=== PATIENT | female | born 1995 | race Caucasian/White ===

== ENCOUNTER 2018-08-22 05:15 | Inpatient (IN) | payer MEDICAID ==
[2018-08-22] MEDS ORDERED: Sodium Chloride 0.9% 10 ML Syringe FLUSH PRN (05:21)
[2018-08-22] MEDS ORDERED: Sodium Chloride 0.9% 10 ML SDV IV PRN (05:21)
[2018-08-22] MEDS ORDERED: Sodium Chloride 0.9% 2.5 ML Syringe FLUSH PRN (05:21)
[2018-08-22] MEDS ORDERED: Citric Acid/Sodium Citrate Solution 30 ML Cup PO ONE (05:21)
[2018-08-22] MEDS ORDERED: Oxytocin/0.9 % Sodium Chloride 30 UNIT/500 ML BAG IV SCH (05:30)
[2018-08-22] MEDS: Lactated Ringers 1,000 ML IV SCH ×3 (05:55→07:36)
--- NOTE | 2018-08-22 06:48 | PCM.PREANE ---
Preanesthetic Assessment - Anesthesia/Transfusion/Family Hx Anesthesia History: Prior Anesthesia Without Reaction Family History of Anesthesia Reaction: No Transfusion History: No Prior Transfusion(s) Intubation History: Unknown - Review of Systems General: No Symptoms Pulmonary: No Symptoms Cardiovascular: No Symptoms Gastrointestinal: No Symptoms Neurological: No Symptoms Other: Reports: None - Physical Assessment Height: 4 ft 11.06 in Weight: 86.636 kg ASA Class: 2 Mental Status: Alert & Oriented x3 Airway Class: Mallampati = 2 Dentition: Reports: Normal Dentition Thyro-Mental Finger Breadths: 3 Mouth Opening Finger Breadths: 2 ROM/Head Extension: Full Lungs: Clear to Auscultation, Normal Respiratory Effort Cardiovascular: Regular Rate, Regular Rhythm - Lab Values: Laboratory Last Values WBC 12.01 K/uL (4.0-11.0) H 08/22/18 05:53 RBC 4.17 M/uL (4.30-5.90) L 08/22/18 05:53 Hgb 9.7 g/dL (12.0-16.0) L 08/22/18 05:53 Hct 31.7 % (36.0-46.0) L 08/22/18 05:53 MCV 76.0 fL (80.0-98.0) L 08/22/18 05:53 MCH 23.3 pg (27.0-32.0) L 08/22/18 05:53 MCHC 30.6 g/dL (31.0-37.0) L 08/22/18 05:53 RDW Std Deviation 47.1 fl (28.0-62.0) 08/22/18 05:53 RDW Coeff of Michael 17 % (11.0-15.0) H 08/22/18 05:53 Plt Count 298 K/uL (150-400) 08/22/18 05:53 MPV 10.80 fL (7.40-12.00) 08/22/18 05:53 Nucleated RBC % 0.0 /100WBC 08/22/18 05:53 Nucleated RBCs # 0 K/uL 08/22/18 05:53 - Allergies Allergies/Adverse Reactions: Allergies Allergy/AdvReac Type Severity Reaction Status Date / Time No Known Allergies Allergy Verified 08/16/18 11:01 - Blood Blood Available: No - Anesthesia Plan Pre-Op Medication Ordered: None - Acknowledgements Anesthesia Type Planned: Spinal (general anesthesia back-up plan) PreAnesthesia Questionnaire - Past Health History Medical/Surgical History: Denies Medical/Surgical History HEENT History: Reports: Other (See Below) Other HEENT History: wears glasses/contacts Cardiovascular History: Reports: None Respiratory History: Reports: None Gastrointestinal History: Reports: Other (See Below) Other Gastrointestinal History: heartburn with Genitourinary History: Reports: None SPIRAL RUNNER History: Reports: Musculoskeletal History: Reports: None Neurological History: Reports: None Psychiatric History: Reports: None Endocrine/Metabolic History: Reports: Obesity/BMI 30+ Hematologic History: Reports: Anemia Immunologic History: Reports: None Oncologic (Cancer) History: Reports: None Dermatologic History: Reports: None - Past Surgical History Head Surgeries/Procedures: Reports: None HEENT Surgical History: Reports: Oral Surgery Other HEENT Surgeries/Procedures: wisdom teeth extraction Cardiovascular Surgical History: Reports: None Respiratory Surgical History: Reports: None GI Surgical History: Reports: None Female Surgical History: Reports: Section (x2) Endocrine Surgical History: Reports: None Neurological Surgical History: Reports: None Musculoskeletal Surgical History: Reports: None Oncologic Surgical History: Reports: None Dermatological Surgical History: Reports: None - SUBSTANCE USE Smoking Status *Q: Never Smoker Recreational Drug Use History: No - HOME MEDS Home Medications: Home Meds Calcium Carbonate [Tums] 1 tab.chew CHEW ASDIRECTED PRN 08/16/18 [History] Doxylamine Succinate [Unisom Sleep Aid] 1 tab PO BEDTIME 08/16/18 [History] PNV95/Ferrous Fumarate/FA [ Vitamin Tablet] 1 tab PO DAILY 08/16/18 [ History] Pyridoxine HCl (Vitamin B6) [Vitamin B-6] 1 tab PO DAILY 08/16/18 [History] - CURRENT (IN HOUSE) MEDS Current Meds: Current Medications Lactated Ringer's (Ringers, Lactated) 1,000 mls @ 500 mls/hr IV BOLUS [facility] Last Admin: 08/22/18 06:38 Dose: 500 mls/hr Oxytocin/Sodium Chloride (Oxytocin 30 Unit/500 Ml-Ns) 30 unit in 500 mls @ 250 mls/hr IV TITRATE [facility] Sodium Chloride (Saline Flush) 10 ml FLUSH ASDIRECTED PRN PRN Reason: Keep Vein Open Sodium Chloride (Saline Flush) 2.5 ml FLUSH ASDIRECTED PRN PRN Reason: Keep Vein Open Sodium Chloride (Normal Saline) 10 ml IV ASDIRECTED PRN PRN Reason: IV Use Discontinued Medications Citric Acid/Sodium Citrate (Bicitra Solution) 30 ml PO ONETIME ONE Stop: 08/22/18 05:22
[2018-08-22] MEDS ORDERED: Ondansetron 4 MG/2 ML SDV ONE (07:29)
[2018-08-22] MEDS ORDERED: Propofol 200 MG/20 ML SDV ONE (07:30)
[2018-08-22] MEDS ORDERED: Sodium Chloride 0.9% 20 ML ONE (07:30)
[2018-08-22] MEDS ORDERED: ceFAZolin 1 GM Vial ONE (07:30)
[2018-08-22] MEDS ORDERED: ePHEDrine 50 MG/ML SDV ONE (07:30)
[2018-08-22] MEDS ORDERED: Oxytocin 10 Units/1 ML SDV ONE (07:50)
[2018-08-22] MEDS ORDERED: Morphine PF 10 MG/10 ML SDV ONE (07:51)
[2018-08-22] MEDS ORDERED: fentaNYL 100 MCG/2 ML SDV ONE (08:40)
[2018-08-22] MEDS ORDERED: Octyl 2-Cyanoacrylate 1 Tube ONE (09:14)
[2018-08-22] MEDS ORDERED: diphenhydrAMINE 50 MG/ML SDV IVPUSH PRN ×2 (09:34→09:56)
[2018-08-22] MEDS ORDERED: Acetaminophen/oxyCODONE 325-5 MG Tab PO PRN ×2 (09:34→09:56)
[2018-08-22] MEDS ORDERED: Lanolin 100% Cream 7 GM Tube TOP PRN (09:34)
[2018-08-22] MEDS ORDERED: Ondansetron 4 MG/2 ML SDV IVPUSH PRN ×2 (09:34→09:56)
[2018-08-22] MEDS ORDERED: Bisacodyl 10 MG Supp RECTAL PRN (09:34)
--- NOTE | 2018-08-22 09:41 | PCM.OPNOTE ---
- General Post-Op/Procedure Note Date of Surgery/Procedure: 08/22/18 Operative Procedure(s): Tertiary lower transverse Findings: Live female delivered at 832am , 9/9 weight 3060g Pre Op Diagnosis: 23 yo @ 39w2d for tertiary Post-Op Diagnosis: same Anesthesia Technique: Spinal Primary Surgeon: Sandeep Abarca Anesthesia Provider: Elidia Browning [employer] Electrician: Katharine Fluid Replacement, Intraop: 3,500 Output, Urine Amount: 145 EBL in mLs: 500 Complications: None Condition: Good
[2018-08-22] MEDS ORDERED: Lactated Ringers 1,000 ML IV SCH (09:45)
[2018-08-22] MEDS ORDERED: Ketorolac 30 MG/ML SDV ONE (09:52)
[2018-08-22] MEDS: Ketorolac 30 MG/ML SDV IVPUSH SCH ×3 (09:55→22:04)
[2018-08-22] MEDS ORDERED: Nalbuphine 10 MG/1 ML Vial IVPUSH PRN (09:56)
[2018-08-22] MEDS ORDERED: fentaNYL 100 MCG/2 ML SDV IVPUSH PRN (09:56)
[2018-08-22] MEDS ORDERED: Naloxone 0.4 MG/ML Syringe IVPUSH PRN (09:56)
--- NOTE | 2018-08-22 10:06 | PCM.POSTAN ---
POST ANESTHESIA ASSESSMENT - MENTAL STATUS Mental Status: Alert - VITAL SIGNS Pulse Rate: 70 SaO2: 99 Resp Rate: 20 Blood Pressure: 126/80 Temperature: 36.7 C - RESPIRATORY Respiratory Status: Respiratory Rate WNL - CARDIOVASCULAR CV Status: Pulse Rate WNL - GASTROINTESTINAL GI Status: No Symptoms - PAIN Pain Score: 1 (Some cramping) - POST OP HYDRATION Hydration Status: Adequate & Stable (Doing well. Ready for transfer floor. No problems noted.)
--- NOTE | 2018-08-22 11:48 | OR ---
SURGEON: ELISHA CARDENAS DATE OF PROCEDURE: 08/22/2018 PREOPERATIVE DIAGNOSIS: A 23-year-old, G4, P1-1-1-2 at 39 weeks 2 days for tertiary . POSTOPERATIVE DIAGNOSIS: A 23-year-old, G4, P1-1-1-2 at 39 weeks 2 days for tertiary . PROCEDURE: Tertiary lower segment transverse section. ANESTHESIA: Spinal. ESTIMATED BLOOD LOSS: 500. IV FLUID: 3500. URINE OUTPUT: 145. NOTES AND FINDING: A live female delivered at 8:32 a.m. score was 9 and 9. Weight was 3060 g. BRIEF HISTORY: This 23-year-old low-risk patient had a history of previous x2. Desired a repeat . She was explained the risks, benefits, and alternatives, and she decided to proceed. PROCEDURE IN DETAIL: The patient was taken to the operating room where spinal anesthesia was performed without difficulty. She was prepared and draped in the dorsal supine position with a leftward tilt. A Pfannenstiel skin incision was made and was carried down to the fascia with the Bovie. The fascia was incised and extended upwards and laterally. The fascia was grasped with a Dominic clamp and dissected off the rectus muscle. There was some muscle diastasis noted with some pre peritoneal fat noted noted after the entry, so careful dissection was made to ensure there was no adhered bowel. Then, the fascia was also below from the rectus muscle. The abdomen was entered in without any difficulty. It was extended upwards and laterally. The Juan Jose retractor was placed in without any difficulty. The lower uterine segment was identified. The peritoneum was with the aid of the Metzenbaum. Then, the lower uterine incision was made, then it was extended upwards and laterally. The fetus was then elevated to the level of the incision. The head was delivered with fundal pressure followed by the anterior and posterior shoulder. Delayed cord clamping was observed. The cord was clamped and cut. The was handed over to the awaiting nursery nurse team. The placenta was then delivered via gentle traction and uterine massage. Then, the uterine incision was cleaned with moist laparotomy sponges. The incision was closed in 2 layers, first layer with 0 Vicryl, second layer with 0 Monocryl. The gutters were cleaned. Then, the Juan Jose was removed. The uterus was also inspected and noted to be hemostatic. Then, the rectus muscle was approximated with peritoneum without any difficulty. Then, the fascia was closed with 0 Vicryl. The skin was closed with 3-0 Monocryl on a Kraig needle. All instrument and pad count were correct x2. AMARILIS / JOSE MIGUEL /[id number] DANIELITO
[2018-08-22] MEDS: Docusate Sodium 100 MG Cap PO SCH (22:05)
--- NOTE | 2018-08-22 23:59 | PCM48HPAN ---
Post Anesthesia Note - EVALUATION WITHIN 48HRS OF ANESTHETIC Vital Signs in Normal Range: Yes Patient Participated in Evaluation: Yes Respiratory Function Stable: Yes Airway Patent: Yes Cardiovascular Function Stable: Yes Hydration Status Stable: Yes Pain Control Satisfactory: Yes Nausea and Vomiting Control Satisfactory: Yes Mental Status Recovered: Yes Pulse Rate: 67 SaO2: 96 Resp Rate: 18 Temperature: 97.2 F Blood Pressure: 124/68
[2018-08-23] MEDS: Ketorolac 30 MG/ML SDV IVPUSH SCH ×2 (04:10→09:22)
--- NOTE | 2018-08-23 09:09 | PCM.PNPP ---
- General Info Date of Service: 08/23/18 Subjective Update: 23yo s/p X3 , Ambulating , pain control good , yet to void Functional Status: Reports: Pain Controlled, Tolerating Diet, Ambulating - Review of Systems General: Reports: No Symptoms HEENT: Reports: No Symptoms Pulmonary: Reports: No Symptoms Cardiovascular: Reports: No Symptoms Gastrointestinal: Reports: No Symptoms Genitourinary: Reports: No Symptoms Musculoskeletal: Reports: No Symptoms Skin: Reports: No Symptoms Neurological: Reports: No Symptoms Psychiatric: Reports: No Symptoms - Patient Data Vital Signs - Most Recent: Last Vital Signs Temp 36.6 C 08/23/18 04:19 Pulse 77 08/23/18 08:00 Resp 14 08/23/18 08:00 BP 119/74 08/23/18 08:00 Pulse Ox 99 08/23/18 08:00 Weight - Most Recent: 86.636 kg I&O - Last 24 Hours: Intake & Output 08/22/18 08/23/18 08/23/18 22:59 06:59 14:59 Output Total 420 625 Balance -420 -625 Lab Results - Last 24 Hours: Laboratory Results - last 24 hr 08/23/18 Range/Units 05:00 Hgb 9.4 L (12.0-16.0) g/dL Hct 32.0 L (36.0-46.0) % Med Orders - Current: Current Medications Bisacodyl (Dulcolax) 10 mg RECTAL ONETIME PRN PRN Reason: Constipation Diphenhydramine HCl (Benadryl) 25 mg IVPUSH Q6H PRN PRN Reason: Itching or Nausea Last Admin: 08/23/18 04:52 Dose: 25 mg Diphenhydramine HCl (Benadryl) 25 mg IVPUSH Q4H PRN PRN Reason: Itching Stop: 08/23/18 09:56 Docusate Sodium (Colace) 100 mg PO BID [facility] Last Admin: 08/22/18 22:05 Dose: 100 mg Emollient Ointment (Lansinoh Hpa) 0 gm TOP ASDIRECTED PRN PRN Reason: Sore Nipples Fentanyl (Sublimaze) 50 mcg IVPUSH Q1H PRN PRN Reason: Pain (severe 7-10) Lactated Ringer's (Ringers, Lactated) 1,000 mls @ 500 mls/hr IV BOLUS [facility] Last Admin: 08/22/18 07:36 Dose: 500 mls/hr Oxytocin/Sodium Chloride (Oxytocin 30 Unit/500 Ml-Ns) 30 unit in 500 mls @ 250 mls/hr IV TITRATE [facility] Lactated Ringer's (Ringers, Lactated) 1,000 mls @ 125 mls/hr IV ASDIRECTED [facility] Ibuprofen (Motrin) 800 mg PO Q8H PRN PRN Reason: mild pain or fever Ketorolac Tromethamine (Toradol) 30 mg IVPUSH Q6H [facility] Stop: 08/23/18 09:46 Last Admin: 08/23/18 04:10 Dose: 30 mg Nalbuphine HCl (Nubain) 5 mg IVPUSH ASDIRECTED PRN PRN Reason: Itching Last Admin: 08/22/18 11:04 Dose: 5 mg Naloxone HCl (Narcan) 0.1 mg IVPUSH ONETIME PRN PRN Reason: Respiratory Depression Stop: 08/23/18 09:56 Ondansetron HCl (Zofran) 4 mg IVPUSH Q4H PRN PRN Reason: Nausea/Vomiting Last Admin: 08/22/18 16:40 Dose: 4 mg Ondansetron HCl (Zofran) 4 mg IVPUSH Q6H PRN PRN Reason: Nausea Oxycodone/Acetaminophen (Percocet 325-5 Mg) 1 tab PO Q4H PRN PRN Reason: Pain (moderate 4-6) Oxycodone/Acetaminophen (Percocet 325-5 Mg) 2 tab PO Q4H PRN PRN Reason: Pain (moderate 4-6) Oxycodone/Acetaminophen (Percocet 325-5 Mg) 2 tab PO Q6H PRN PRN Reason: Pain (moderate 4-6) Sodium Chloride (Saline Flush) 10 ml FLUSH ASDIRECTED PRN PRN Reason: Keep Vein Open Sodium Chloride (Saline Flush) 2.5 ml FLUSH ASDIRECTED PRN PRN Reason: Keep Vein Open Sodium Chloride (Normal Saline) 10 ml IV ASDIRECTED PRN PRN Reason: IV Use Discontinued Medications Cefazolin Sodium (Ancef) Confirm Administered Dose 2 gm .ROUTE .STK-MED ONE Stop: 08/22/18 07:31 Citric Acid/Sodium Citrate (Bicitra Solution) 30 ml PO ONETIME ONE Stop: 08/22/18 05:22 Last Admin: 08/22/18 10:20 Dose: Not Given Ephedrine Sulfate (Ephedrine Sulfate) Confirm Administered Dose 50 mg .ROUTE .STK-MED ONE Stop: 08/22/18 07:31 Fentanyl (Sublimaze) Confirm Administered Dose 100 mcg .ROUTE .STK-MED ONE Stop: 08/22/18 08:41 Sodium Chloride (Normal Saline) Confirm Administered Dose 20 mls @ as directed .ROUTE .STK-MED ONE Stop: 08/22/18 07:31 Acetaminophen (Ofirmev) Confirm Administered Dose 100 mls @ as directed IV .STK- MED ONE Stop: 08/22/18 08:55 Last Admin: 08/22/18 10:20 Dose: Not Given Ketorolac Tromethamine (Toradol) Confirm Administered Dose 30 mg .ROUTE .STK- MED ONE Stop: 08/22/18 09:53 Last Admin: 08/22/18 10:20 Dose: Not Given Morphine Sulfate (Duramorph Pf) Confirm Administered Dose 10 mg .ROUTE .STK-MED ONE Stop: 08/22/18 07:52 Octyl Cyanoacrylate (Dermabond Advance) Confirm Administered Dose 1 applic .ROUTE .STK-MED ONE Stop: 08/22/18 09:15 Last Admin: 08/22/18 10:20 Dose: Not Given Ondansetron HCl (Zofran) Confirm Administered Dose 4 mg .ROUTE .STK-MED ONE Stop: 08/22/18 07:30 Oxytocin (Pitocin) Confirm Administered Dose 30 unit .ROUTE .STK-MED ONE Stop: 08/22/18 07:51 Propofol (Diprivan 20 Ml) Confirm Administered Dose 200 mg .ROUTE .STK-MED ONE Stop: 08/22/18 07:31 - Infant Interaction Support Person: Significant Other - Recovery Exam Fundal Tone: Firm Fundal Level: At Umbilicus Fundal Placement: Midline Lochia Amount: Scant Lochia Color: Rubra/Red Perineum Description: Intact, Minimal Bruising/Swelling Episiotomy/Laceration: None Bladder Status: Voiding Urinary Elimination: Voided - Exam General: Alert HEENT: Pupils Equal Neck: Supple Lungs: Clear to Auscultation, Normal Respiratory Effort Cardiovascular: Regular Rate, Regular Rhythm GI/Abdominal Exam: Normal Bowel Sounds Extremities: Normal Inspection Wound/Incisions: Dressing Dry and Intact Neurological: No New Focal Deficit - Problem List & Annotations (1) delivery delivered SNOMED Code(s): 231066428 Code(s): O82 - ENCOUNTER FOR DELIVERY WITHOUT INDICATION Status: Acute Current Visit: Yes - Problem List Review Problem List Initiated/Reviewed/Updated: Yes - My Orders Last 24 Hours: My Active Orders 08/22/18 09:34 Patient Status [ADT] Routine Ambulate [RC] PER UNIT ROUTINE Communication Order [RC] PER UNIT ROUTINE Communication Order [RC] PER UNIT ROUTINE Communication Order [RC] Per Unit Routine May Shower [RC] ASDIRECTED Notify Provider Intake and Out [RC] ASDIRECTED Notify Provider Vital Signs [RC] ASDIRECTED RT Incentive Spirometry [RC] Q2HWA Vital Signs [RC] PER UNIT ROUTINE Acetaminophen/oxyCODONE [Percocet 325-5 MG] 1 tab PO Q4H PRN Acetaminophen/oxyCODONE [Percocet 325-5 MG] 2 tab PO Q4H PRN Bisacodyl [Dulcolax] 10 mg RECTAL ONETIME PRN Ibuprofen [Motrin] 800 mg PO Q8H PRN Lanolin [Lansinoh HPA] See Dose Instructions TOP ASDIRECTED PRN Ondansetron [Zofran] 4 mg IVPUSH Q4H PRN diphenhydrAMINE [Benadryl] 25 mg IVPUSH Q6H PRN Assess Lochia [WOMSER] Per Unit Routine Assess Uterine Involution [WOMSER] Per Unit Routine Breast Pump [WOMSER] Per Unit Routine Peripheral IV Discontinue [OM.PC] Routine Sequential Compression Device [OM.PC] Per Unit Routine Resuscitation Status Routine 08/22/18 09:35 Antiembolic Devices [RC] PER UNIT ROUTINE 08/22/18 09:45 Ketorolac [Toradol] 30 mg IVPUSH Q6H Lactated Ringers [Ringers, Lactated] 1,000 ml IV ASDIRECTED 08/22/18 21:00 Docusate Sodium [Colace] 100 mg PO BID 08/22/18 Dinner Regular Diet [DIET] - Assessment Assessment:: 23 yo P3 s/p , ambulating , tolerating regular diet , yet to void - Plan Plan:: ROutine Monitor voiding Pain control as needed Incentive spirometry
[2018-08-23] MEDS: Docusate Sodium 100 MG Cap PO SCH ×2 (09:18→20:50)
[2018-08-23] MEDS: Acetaminophen/oxyCODONE 325-5 MG Tab PO PRN ×2 (12:35→20:55)
[2018-08-23] MEDS: Ibuprofen 800 MG Tab PO PRN (18:07)
[2018-08-24] MEDS: Acetaminophen/oxyCODONE 325-5 MG Tab PO PRN ×2 (01:47→05:40)
[2018-08-24] MEDS: Ibuprofen 800 MG Tab PO PRN (05:41)
--- NOTE | 2018-08-24 08:50 | PCM.PNPP ---
- General Info Date of Service: 08/24/18 Subjective Update: 23yo s/p X3 , Ambulating , pain control fair , voiding Functional Status: Reports: Pain Controlled, Tolerating Diet, Ambulating, Urinating - Review of Systems General: Reports: No Symptoms HEENT: Reports: No Symptoms Pulmonary: Reports: No Symptoms Cardiovascular: Reports: No Symptoms Gastrointestinal: Reports: No Symptoms Genitourinary: Reports: No Symptoms Musculoskeletal: Reports: No Symptoms Skin: Reports: No Symptoms Neurological: Reports: No Symptoms Psychiatric: Reports: No Symptoms - General Info Date of Service: 08/24/18 - Patient Data Vital Signs - Most Recent: Last Vital Signs Temp 36.4 C 08/24/18 04:22 Pulse 78 08/24/18 04:22 Resp 18 08/24/18 04:22 BP 119/80 08/24/18 04:22 Pulse Ox 97 08/24/18 04:22 Weight - Most Recent: 86.636 kg Med Orders - Current: Current Medications Bisacodyl (Dulcolax) 10 mg RECTAL ONETIME PRN PRN Reason: Constipation Diphenhydramine HCl (Benadryl) 25 mg IVPUSH Q6H PRN PRN Reason: Itching or Nausea Last Admin: 08/23/18 04:52 Dose: 25 mg Docusate Sodium (Colace) 100 mg PO BID [facility] Last Admin: 08/23/18 20:50 Dose: 100 mg Emollient Ointment (Lansinoh Hpa) 0 gm TOP ASDIRECTED PRN PRN Reason: Sore Nipples Fentanyl (Sublimaze) 50 mcg IVPUSH Q1H PRN PRN Reason: Pain (severe 7-10) Lactated Ringer's (Ringers, Lactated) 1,000 mls @ 500 mls/hr IV BOLUS [facility] Last Admin: 08/22/18 07:36 Dose: 500 mls/hr Oxytocin/Sodium Chloride (Oxytocin 30 Unit/500 Ml-Ns) 30 unit in 500 mls @ 250 mls/hr IV TITRATE [facility] Lactated Ringer's (Ringers, Lactated) 1,000 mls @ 125 mls/hr IV ASDIRECTED [facility] Ibuprofen (Motrin) 800 mg PO Q8H PRN PRN Reason: mild pain or fever Last Admin: 08/24/18 05:41 Dose: 800 mg Nalbuphine HCl (Nubain) 5 mg IVPUSH ASDIRECTED PRN PRN Reason: Itching Last Admin: 08/22/18 11:04 Dose: 5 mg Ondansetron HCl (Zofran) 4 mg IVPUSH Q4H PRN PRN Reason: Nausea/Vomiting Last Admin: 08/22/18 16:40 Dose: 4 mg Ondansetron HCl (Zofran) 4 mg IVPUSH Q6H PRN PRN Reason: Nausea Oxycodone/Acetaminophen (Percocet 325-5 Mg) 1 tab PO Q4H PRN PRN Reason: Pain (moderate 4-6) Last Admin: 08/24/18 05:40 Dose: 1 tab Oxycodone/Acetaminophen (Percocet 325-5 Mg) 2 tab PO Q4H PRN PRN Reason: Pain (moderate 4-6) Oxycodone/Acetaminophen (Percocet 325-5 Mg) 2 tab PO Q6H PRN PRN Reason: Pain (moderate 4-6) Sodium Chloride (Saline Flush) 10 ml FLUSH ASDIRECTED PRN PRN Reason: Keep Vein Open Sodium Chloride (Saline Flush) 2.5 ml FLUSH ASDIRECTED PRN PRN Reason: Keep Vein Open Sodium Chloride (Normal Saline) 10 ml IV ASDIRECTED PRN PRN Reason: IV Use Discontinued Medications Cefazolin Sodium (Ancef) Confirm Administered Dose 2 gm .ROUTE .STK-MED ONE Stop: 08/22/18 07:31 Citric Acid/Sodium Citrate (Bicitra Solution) 30 ml PO ONETIME ONE Stop: 08/22/18 05:22 Last Admin: 08/22/18 10:20 Dose: Not Given Diphenhydramine HCl (Benadryl) 25 mg IVPUSH Q4H PRN PRN Reason: Itching Stop: 08/23/18 09:56 Ephedrine Sulfate (Ephedrine Sulfate) Confirm Administered Dose 50 mg .ROUTE .STK-MED ONE Stop: 08/22/18 07:31 Fentanyl (Sublimaze) Confirm Administered Dose 100 mcg .ROUTE .STK-MED ONE Stop: 08/22/18 08:41 Sodium Chloride (Normal Saline) Confirm Administered Dose 20 mls @ as directed .ROUTE .STK-MED ONE Stop: 08/22/18 07:31 Acetaminophen (Ofirmev) Confirm Administered Dose 100 mls @ as directed IV .STK- MED ONE Stop: 08/22/18 08:55 Last Admin: 08/22/18 10:20 Dose: Not Given Ketorolac Tromethamine (Toradol) 30 mg IVPUSH Q6H [facility] Stop: 08/23/18 09:46 Last Admin: 08/23/18 09:22 Dose: 30 mg Ketorolac Tromethamine (Toradol) Confirm Administered Dose 30 mg .ROUTE .STK- MED ONE Stop: 08/22/18 09:53 Last Admin: 08/22/18 10:20 Dose: Not Given Morphine Sulfate (Duramorph Pf) Confirm Administered Dose 10 mg .ROUTE .STK-MED ONE Stop: 08/22/18 07:52 Naloxone HCl (Narcan) 0.1 mg IVPUSH ONETIME PRN PRN Reason: Respiratory Depression Stop: 08/23/18 09:56 Octyl Cyanoacrylate (Dermabond Advance) Confirm Administered Dose 1 applic .ROUTE .STK-MED ONE Stop: 08/22/18 09:15 Last Admin: 08/22/18 10:20 Dose: Not Given Ondansetron HCl (Zofran) Confirm Administered Dose 4 mg .ROUTE .STK-MED ONE Stop: 08/22/18 07:30 Oxytocin (Pitocin) Confirm Administered Dose 30 unit .ROUTE .STK-MED ONE Stop: 08/22/18 07:51 Propofol (Diprivan 20 Ml) Confirm Administered Dose 200 mg .ROUTE .STK-MED ONE Stop: 08/22/18 07:31 - Interaction Support Person: Significant Other - Recovery Exam Fundal Tone: Firm Fundal Level: 1 Fingerbreadths Below Umbilicus Fundal Placement: Midline Lochia Amount: Scant Lochia Color: Rubra/Red Perineum Description: Intact, Minimal Bruising/Swelling Episiotomy/Laceration: None Bladder Status: Voiding Urinary Elimination: Voided - Exam General: Alert, Oriented HEENT: Pupils Equal Neck: Supple Lungs: Clear to Auscultation Cardiovascular: Regular Rate, Regular Rhythm GI/Abdominal Exam: Normal Bowel Sounds Extremities: Normal Inspection Wound/Incisions: Dressing Dry and Intact Neurological: No New Focal Deficit - Problem List & Annotations (1) delivery delivered SNOMED Code(s): 542669667 Code(s): O82 - ENCOUNTER FOR DELIVERY WITHOUT INDICATION Status: Acute Current Visit: Yes - Problem List Review Problem List Initiated/Reviewed/Updated: Yes - Assessment Assessment:: 23 yo P3 s/p , ambulating , tolerating regular diet ,voiding, POD2 - Plan Plan:: Discharge home
[2018-08-24] MEDS: Docusate Sodium 100 MG Cap PO SCH (09:19)
[2018-08-24 09:48] VITALS: BP 134/82
== END 2018-08-24 12:20 | disposition home or self-care (01) | DRG 788 ==
LOC: UNDOADMIN 05:15 → MW.OB 05:15
PROVIDERS: ADMIT Obstetrics & Gynecology; ATTEND Obstetrics & Gynecology
PROC: 10D00Z1 Extraction of Products of Conception, Low, Open Approach (ICD-10-PCS; principal; 2018-08-22)
DX: O34.211 Maternal care for low transverse scar from previous cesarean delivery (principal); O99.214 Obesity complicating childbirth; E66.9 Obesity, unspecified; D64.9 Anemia, unspecified; O99.02 Anemia complicating childbirth; Z3A.39 39 weeks gestation of pregnancy; Z37.0 Single live birth
CPT/HCPCS: 36415; 59025; 85014; 85018; 85027; 86850; 86900; 86901; A9270-GY; J0690; J1200; J1885; J2270; J2300; J2405; J2590; J2704; J3010; J7120

== ENCOUNTER 2020-02-23 05:20 | Inpatient (IN) | payer MEDICAID ==
[2020-02-23] MEDS ORDERED: Tranexamic Acid 1,000 MG in Sodium Chloride 0.9% 100 ML IV PRN ×2 (05:25→09:29)
[2020-02-23] MEDS ORDERED: Nalbuphine 10 MG/1 ML Vial IVPUSH PRN ×2 (05:25→09:05)
[2020-02-23] MEDS ORDERED: Carboprost Tromethamine 250 MCG/1 ML Amp IM PRN (05:25)
[2020-02-23] MEDS ORDERED: Citric Acid/Sodium Citrate Solution 30 ML Cup PO ONE (05:25)
[2020-02-23] MEDS ORDERED: Misoprostol 200 MCG Tab PO PRN (05:25)
[2020-02-23] MEDS ORDERED: ceFAZolin 2 GM in Premix Bag 1 BAG IV ONE (05:25)
[2020-02-23] MEDS ORDERED: Butorphanol 1 MG/ML SDV IVPUSH PRN (05:25)
[2020-02-23] MEDS ORDERED: Sodium Chloride 0.9% 10 ML SDV IV PRN (05:25)
[2020-02-23] MEDS ORDERED: Sodium Chloride 0.9% 2.5 ML Syringe FLUSH PRN (05:25)
[2020-02-23] MEDS ORDERED: Methylergonovine 0.2 MG/1 ML Amp IM PRN ×2 (05:25→09:29)
[2020-02-23] MEDS ORDERED: Water For Irrigation,Sterile 1,000 ML Container IRR PRN (05:25)
[2020-02-23] MEDS ORDERED: Sodium Chloride 0.9% 10 ML Syringe FLUSH PRN (05:25)
[2020-02-23] MEDS ORDERED: Lidocaine 1% 50 ML MDV INJECT PRN (05:25)
[2020-02-23] MEDS ORDERED: Lactated Ringers 1,000 ML IV SCH (05:30)
[2020-02-23] MEDS ORDERED: Oxytocin/0.9 % Sodium Chloride 30 UNIT/500 ML BAG IV SCH ×2 (05:30)
[2020-02-23] MEDS: Lactated Ringers 1,000 ML IV SCH ×6 (05:55→17:23)
--- NOTE | 2020-02-23 07:01 | PCM.PREANE ---
Preanesthetic Assessment - Anesthesia/Transfusion/Family Hx Anesthesia History: Prior Anesthesia Without Reaction Family History of Anesthesia Reaction: No Transfusion History: No Prior Transfusion(s) Type of Transfusion Reactions: Reports: Unknown Intubation History: Unknown - Review of Systems General: No Symptoms Pulmonary: No Symptoms Cardiovascular: No Symptoms Gastrointestinal: No Symptoms Neurological: No Symptoms Other: Reports: None - Physical Assessment Height: 5 ft Weight: 96.615 kg ASA Class: 2 Mental Status: Alert & Oriented x3 Airway Class: Mallampati = 2 Dentition: Reports: Normal Dentition Thyro-Mental Finger Breadths: 3 Mouth Opening Finger Breadths: 3 ROM/Head Extension: Full Lungs: Clear to Auscultation, Normal Respiratory Effort Cardiovascular: Regular Rate, Regular Rhythm - Lab Values: Laboratory Last Values WBC 12.27 K/uL (4.0-11.0) H 02/23/20 05:50 RBC 4.15 M/uL (4.30-5.90) L 02/23/20 05:50 Hgb 9.8 g/dL (12.0-16.0) L 02/23/20 05:50 Hct 32.3 % (36.0-46.0) L 02/23/20 05:50 MCV 77.8 fL (80.0-98.0) L 02/23/20 05:50 MCH 23.6 pg (27.0-32.0) L 02/23/20 05:50 MCHC 30.3 g/dL (31.0-37.0) L 02/23/20 05:50 RDW Std Deviation 47.6 fl (28.0-62.0) 02/23/20 05:50 RDW Coeff of Michael 17 % (11.0-15.0) H 02/23/20 05:50 Plt Count 279 K/uL (150-400) 02/23/20 05:50 MPV 11.20 fL (7.40-12.00) 02/23/20 05:50 Nucleated RBC % 0.5 /100WBC 02/23/20 05:50 Nucleated RBCs # 0 K/uL 02/23/20 05:50 - Allergies Allergies/Adverse Reactions: Allergies Allergy/AdvReac Type Severity Reaction Status Date / Time No Known Allergies Allergy Verified 02/19/20 08:20 - Blood Blood Available: No - Anesthesia Plan Pre-Op Medication Ordered: None - Acknowledgements Anesthesia Type Planned: Spinal (general anesthesia back-up plan) Pt an Appropriate Candidate for the Planned Anesthesia: Yes Alternatives and Risks of Anesthesia Discussed w Pt/Guardian: Yes Pt/Guardian Understands and Agrees with Anesthesia Plan: Yes PreAnesthesia Questionnaire - Past Health History Medical/Surgical History: Denies Medical/Surgical History HEENT History: Reports: Other (See Below) Other HEENT History: wears glasses/contacts Cardiovascular History: Reports: None Respiratory History: Reports: None Gastrointestinal History: Reports: Other (See Below) Other Gastrointestinal History: heartburn with Genitourinary History: Reports: None EVALUATION SPECIALIST History: Reports: Musculoskeletal History: Reports: None Neurological History: Reports: None Psychiatric History: Reports: None Endocrine/Metabolic History: Reports: Obesity/BMI 30+ Hematologic History: Reports: Anemia Immunologic History: Reports: None Oncologic (Cancer) History: Reports: None Dermatologic History: Reports: None - Infectious Disease History Infectious Disease History: Reports: None - Past Surgical History Head Surgeries/Procedures: Reports: None HEENT Surgical History: Reports: Oral Surgery Other HEENT Surgeries/Procedures: wisdom teeth extraction Cardiovascular Surgical History: Reports: None Respiratory Surgical History: Reports: None GI Surgical History: Reports: None Female Surgical History: Reports: Section (x3) Endocrine Surgical History: Reports: None Neurological Surgical History: Reports: None Musculoskeletal Surgical History: Reports: None Oncologic Surgical History: Reports: None Dermatological Surgical History: Reports: None - SUBSTANCE USE Tobacco Use Status *Q: Never Tobacco User Second Hand Smoke Exposure: No - HOME MEDS Home Medications: Home Meds Pnv No.95/Ferrous Fum/Folic AC [ Vitamin Tablet] 1 tab PO DAILY 08/16/18 [History] Ferrous Sulfate [Iron] 3 tab PO DAILY 02/19/20 [History] - CURRENT (IN HOUSE) MEDS Current Meds: Current Medications Butorphanol Tartrate (Stadol) 1 mg IVPUSH Q1H PRN PRN Reason: Pain Carboprost Tromethamine (Hemabate Ds) 250 mcg IM ASDIRECTED PRN PRN Reason: Post Hemorrhage Oxytocin/Sodium Chloride (Oxytocin 30 Unit/500 Ml-Ns) 30 unit in 500 mls @ 250 mls/hr IV TITRATE [facility] Lactated Ringer's (Ringers, Lactated) 1,000 mls @ 150 mls/hr IV ASDIRECTED [facility] Oxytocin/Sodium Chloride (Oxytocin 30 Unit/500 Ml-Ns) 30 unit in 500 mls @ 999 mls/hr IV TITRATE [facility] Tranexamic Acid 1,000 mg/ (Sodium Chloride) 110 mls @ 660 mls/hr IV ONETIME PRN PRN Reason: Bleeding Lactated Ringer's (Ringers, Lactated) 1,000 mls @ 500 mls/hr IV BOLUS [facility] Last Admin: 02/23/20 06:45 Dose: 999 mls/hr Documented by: Lidocaine HCl (Xylocaine 1%) 50 ml INJECT ONETIME PRN PRN Reason: Laceration repair Methylergonovine Maleate (Methergine) 0.2 mg IM ASDIRECTED PRN PRN Reason: Post Hemorrhage Misoprostol (Cytotec) 200 mcg PO ONETIME PRN PRN Reason: Post Hemorrhage Nalbuphine HCl (Nubain) 10 mg IVPUSH Q1H PRN PRN Reason: Pain (severe 7-10) Sodium Chloride (Saline Flush) 10 ml FLUSH ASDIRECTED PRN PRN Reason: Keep Vein Open Sodium Chloride (Saline Flush) 2.5 ml FLUSH ASDIRECTED PRN PRN Reason: Keep Vein Open Sodium Chloride (Normal Saline) 10 ml IV ASDIRECTED PRN PRN Reason: IV Use Sterile Water (Sterile Water For Irrigation) 1,000 ml IRR ASDIRECTED PRN PRN Reason: delivery Discontinued Medications Citric Acid/Sodium Citrate (Bicitra Solution) 30 ml PO ONETIME ONE Stop: 02/23/20 05:26 Cefazolin Sodium/Dextrose 2 gm (/ Premix) 50 mls @ 100 mls/hr IV ONETIME ONE Stop: 02/23/20 05:54
[2020-02-23] MEDS ORDERED: Morphine PF 10 MG/10 ML SDV ONE (07:10)
[2020-02-23] MEDS ORDERED: Ondansetron 4 MG/2 ML SDV ONE (07:11)
[2020-02-23] MEDS ORDERED: Oxytocin 10 Units/1 ML SDV ONE (07:11)
[2020-02-23] MEDS ORDERED: Phenylephrine 1% 10 MG/ML SDV ONE (07:11)
[2020-02-23] MEDS ORDERED: Midazolam 1 MG/ML 2 ML SDV ONE (08:23)
[2020-02-23] MEDS ORDERED: Propofol 200 MG/20 ML SDV ONE (08:24)
[2020-02-23] MEDS ORDERED: fentaNYL 100 MCG/2 ML SDV ONE (08:36)
[2020-02-23] MEDS ORDERED: diphenhydrAMINE 50 MG/ML SDV IVPUSH PRN ×2 (09:05→09:29)
[2020-02-23] MEDS ORDERED: Naloxone 0.4 MG/ML Syringe IVPUSH PRN (09:05)
[2020-02-23] MEDS ORDERED: Acetaminophen/oxyCODONE 325-5 MG Tab PO PRN ×2 (09:05→09:29)
[2020-02-23] MEDS ORDERED: fentaNYL 100 MCG/2 ML SDV IVPUSH PRN (09:05)
[2020-02-23] MEDS ORDERED: Ondansetron 4 MG/2 ML SDV IVPUSH PRN ×2 (09:05→09:29)
[2020-02-23] MEDS ORDERED: Oxytocin 10 Units/1 ML SDV IM PRN (09:29)
[2020-02-23] MEDS ORDERED: Misoprostol 200 MCG Tab RECTAL PRN (09:29)
[2020-02-23] MEDS ORDERED: Bisacodyl 10 MG Supp RECTAL PRN (09:29)
[2020-02-23] MEDS ORDERED: Lanolin 100% Cream 7 GM Tube TOP PRN (09:29)
[2020-02-23] MEDS ORDERED: Oxytocin/Lactated Ringers 30 UNIT/500 ML BAG IV SCH (09:30)
--- NOTE | 2020-02-23 09:38 | PCM.OPNOTE ---
- General Post-Op/Procedure Note Date of Surgery/Procedure: 02/23/20 Operative Procedure(s): Quaternary Lower segment section Findings: Live Male delivered at 830am , 8/9 weight 3500g Pre Op Diagnosis: 24yo @ 39week for quaternary section Post-Op Diagnosis: same Anesthesia Technique: Spinal Primary Surgeon: Sandeep Abarca Secondary Surgeon: Allegra Sanchez Anesthesia Provider: Robb Ferraro Fluid Replacement, Intraop: 1,700 Output, Urine Amount: 100 EBL in mLs: 600 Complications: None Condition: Good
--- NOTE | 2020-02-23 09:55 | PCM.POSTAN ---
POST ANESTHESIA ASSESSMENT - MENTAL STATUS Mental Status: Alert - RESPIRATORY Respiratory Status: Respiratory Rate WNL - CARDIOVASCULAR CV Status: Pulse Rate WNL - GASTROINTESTINAL GI Status: No Symptoms - POST OP HYDRATION Hydration Status: Adequate & Stable
[2020-02-23] MEDS: Ketorolac 30 MG/ML SDV IVPUSH SCH ×3 (10:54→21:06)
[2020-02-23] MEDS ORDERED: Furosemide 20 MG/2 ML VIAL IVPUSH ONE (16:46)
--- NOTE | 2020-02-23 16:47 | PCM.POSTAN ---
POST ANESTHESIA ASSESSMENT - VITAL SIGNS Vital Signs: Last Vital Signs Temp Pulse 72 02/23/20 15:00 Resp 18 02/23/20 15:00 BP Pulse Ox 97 02/23/20 15:00 - RESPIRATORY Respiratory Status: Respiratory Rate WNL - CARDIOVASCULAR CV Status: Pulse Rate WNL - GASTROINTESTINAL GI Status: No Symptoms - POST OP HYDRATION Hydration Status: Adequate & Stable
[2020-02-23 17:43] LABS: BLOOD UREA NITROGEN,BUN 13 mg/dL (7.0-18.0); CHLORIDE,CL 108 mmol/L (98-107); GLUCOSE RANDOM 74 mg/dL (74-106); POTASSIUM,K 4.5 mmol/L (3.5-5.1); SODIUM,NA 139 mmol/L (136-145)
[2020-02-23] MEDS: Docusate Sodium 100 MG Cap PO SCH (21:05)
[2020-02-24] MEDS: Ketorolac 30 MG/ML SDV IVPUSH SCH ×2 (04:52→10:12)
--- NOTE | 2020-02-24 09:22 | PCM.PNPP ---
- General Info Date of Service: 02/24/20 Admission Dx/Problem (Free Text): Repeat lower transverse section Subjective Update: Resting comfortably in bed this morning. Reports pain well controlled. Armando catheter removed this morning but has not voided independently. Ambulating without difficulty. Tolerating PO diet. and pumping for baby. Denies fever/chills, lightheadedness/dizziness, nausea/vomiting or heavy vaginal bleeding. - General Info Date of Service: 02/24/20 - Patient Data Vital Signs - Most Recent: Last Vital Signs Temp 97.9 F 02/24/20 07:55 Pulse 105 H 02/24/20 09:00 Resp 18 02/24/20 09:00 BP 130/74 02/24/20 07:55 Pulse Ox 95 02/24/20 09:00 Weight - Most Recent: 213 lb I&O - Last 24 Hours: Intake & Output 02/23/20 02/24/20 02/24/20 22:59 06:59 14:59 Intake Total 1685 700 Output Total 200 2200 Balance 1485 -1500 Lab Results - Last 24 Hours: Laboratory Results - last 24 hr 02/23/20 02/24/20 Range/Units 17:05 06:20 Hgb 8.4 L (12.0-16.0) g/dL Hct 28.4 L (36.0-46.0) % Sodium 139 (136-145) mmol/L Potassium 4.5 (3.5-5.1) mmol/L Chloride 108 H (98-107) mmol/L Carbon Dioxide 21.0 (21.0-32.0) mmol/L BUN 13 (7.0-18.0) mg/dL Creatinine 0.8 (0.6-1.0) mg/dL Est Cr Clr Drug Dosing 77.89 mL/min Estimated GFR (MDRD) > 60.0 ml/min Glucose 74 (74-106) mg/dL Calcium 8.5 (8.5-10.1) mg/dL Med Orders - Current: Current Medications Bisacodyl (Dulcolax) 10 mg RECTAL ONETIME PRN PRN Reason: Constipation Butorphanol Tartrate (Stadol) 1 mg IVPUSH Q1H PRN PRN Reason: Pain Carboprost Tromethamine (Hemabate Ds) 250 mcg IM ASDIRECTED PRN PRN Reason: Post Hemorrhage Diphenhydramine HCl (Benadryl) 25 mg IVPUSH Q6H PRN PRN Reason: Itching or Nausea Docusate Sodium (Colace) 100 mg PO BID [facility] Last Admin: 02/23/20 21:05 Dose: 100 mg Documented by: Emollient Ointment (Lansinoh Hpa) 0 gm TOP ASDIRECTED PRN PRN Reason: Sore Nipples Last Admin: 02/23/20 11:21 Dose: 7 gm Documented by: Fentanyl (Sublimaze) 50 mcg IVPUSH Q1H PRN PRN Reason: Pain (severe 7-10) Oxytocin/Sodium Chloride (Oxytocin 30 Unit/500 Ml-Ns) 30 unit in 500 mls @ 250 mls/hr IV TITRATE [facility] Lactated Ringer's (Ringers, Lactated) 1,000 mls @ 150 mls/hr IV ASDIRECTED [facility] Oxytocin/Sodium Chloride (Oxytocin 30 Unit/500 Ml-Ns) 30 unit in 500 mls @ 999 mls/hr IV TITRATE [facility] Tranexamic Acid 1,000 mg/ (Sodium Chloride) 110 mls @ 660 mls/hr IV ONETIME PRN PRN Reason: Bleeding Lactated Ringer's (Ringers, Lactated) 1,000 mls @ 500 mls/hr IV BOLUS [facility] Last Admin: 02/23/20 07:59 Dose: 999 mls/hr Documented by: Lactated Ringer's (Ringers, Lactated) 1,000 mls @ 125 mls/hr IV ASDIRECTED [facility] Last Infusion: 02/23/20 17:55 Dose: 125 mls/hr Documented by: Oxytocin/Lactated Ringer's (Pitocin In Lr 30 Units/500 Ml) 30 unit in 500 mls @ 2 mls/hr IV TITRATE [facility]; Protocol Tranexamic Acid 1,000 mg/ (Sodium Chloride) 110 mls @ 660 mls/hr IV ONETIME PRN PRN Reason: Bleeding Ibuprofen (Motrin) 800 mg PO Q8H PRN PRN Reason: mild pain or fever Ketorolac Tromethamine (Toradol) 30 mg IVPUSH Q6H [facility] Stop: 02/24/20 09:31 Last Admin: 02/24/20 04:52 Dose: 30 mg Documented by: Lidocaine HCl (Xylocaine 1%) 50 ml INJECT ONETIME PRN PRN Reason: Laceration repair Methylergonovine Maleate (Methergine) 0.2 mg IM ASDIRECTED PRN PRN Reason: Post Hemorrhage Methylergonovine Maleate (Methergine) 0.2 mg IM ONETIME PRN PRN Reason: Excessive Vaginal Bleeding Misoprostol (Cytotec) 200 mcg PO ONETIME PRN PRN Reason: Post Hemorrhage Misoprostol (Cytotec) 1,000 mcg RECTAL ONETIME PRN PRN Reason: excessive bleeding Nalbuphine HCl (Nubain) 10 mg IVPUSH Q1H PRN PRN Reason: Pain (severe 7-10) Nalbuphine HCl (Nubain) 5 mg IVPUSH ASDIRECTED PRN PRN Reason: Itching Last Admin: 02/23/20 13:19 Dose: 5 mg Documented by: Ondansetron HCl (Zofran) 4 mg IVPUSH Q6H PRN PRN Reason: Nausea Ondansetron HCl (Zofran) 4 mg IVPUSH Q4H PRN PRN Reason: Nausea/Vomiting Last Admin: 02/23/20 11:19 Dose: 4 mg Documented by: Oxycodone/Acetaminophen (Percocet 325-5 Mg) 2 tab PO Q6H PRN PRN Reason: Pain (moderate 4-6) Oxycodone/Acetaminophen (Percocet 325-5 Mg) 1 tab PO Q4H PRN PRN Reason: Pain (moderate 4-6) Oxycodone/Acetaminophen (Percocet 325-5 Mg) 2 tab PO Q4H PRN PRN Reason: Pain (moderate 4-6) Oxytocin (Pitocin) 10 unit IM ASDIRECTED PRN PRN Reason: Excessive Vaginal Bleeding Sodium Chloride (Saline Flush) 10 ml FLUSH ASDIRECTED PRN PRN Reason: Keep Vein Open Sodium Chloride (Saline Flush) 2.5 ml FLUSH ASDIRECTED PRN PRN Reason: Keep Vein Open Sodium Chloride (Normal Saline) 10 ml IV ASDIRECTED PRN PRN Reason: IV Use Sterile Water (Sterile Water For Irrigation) 1,000 ml IRR ASDIRECTED PRN PRN Reason: delivery Discontinued Medications Citric Acid/Sodium Citrate (Bicitra Solution) 30 ml PO ONETIME ONE Stop: 02/23/20 05:26 Last Admin: 02/23/20 10:54 Dose: Not Given Documented by: Diphenhydramine HCl (Benadryl) 25 mg IVPUSH Q4H PRN PRN Reason: Itching Stop: 02/24/20 09:05 Fentanyl (Sublimaze) Confirm Administered Dose 100 mcg .ROUTE .STK-MED ONE Stop: 02/23/20 08:37 Furosemide (Lasix) 10 mg IVPUSH NOW ONE Stop: 02/23/20 16:47 Last Admin: 02/23/20 17:15 Dose: 10 mg Documented by: Cefazolin Sodium/Dextrose 2 gm (/ Premix) 50 mls @ 100 mls/hr IV ONETIME ONE Stop: 02/23/20 05:54 Last Admin: 02/23/20 10:54 Dose: Not Given Documented by: Midazolam HCl (Versed 1 Mg/Ml) Confirm Administered Dose 2 mg .ROUTE .STK-MED ONE Stop: 02/23/20 08:24 Morphine Sulfate (Duramorph Pf) Confirm Administered Dose 10 mg .ROUTE .STK-MED ONE Stop: 02/23/20 07:11 Naloxone HCl (Narcan) 0.1 mg IVPUSH ONETIME PRN PRN Reason: Respiratory Depression Stop: 02/24/20 09:05 Ondansetron HCl (Zofran) Confirm Administered Dose 4 mg .ROUTE .STK-MED ONE Stop: 02/23/20 07:12 Oxytocin (Pitocin) Confirm Administered Dose 20 unit .ROUTE .STK-MED ONE Stop: 02/23/20 07:12 Phenylephrine HCl (Raghu-Synephrine) Confirm Administered Dose 10 mg .ROUTE .STK- MED ONE Stop: 02/23/20 07:12 Propofol (Diprivan 20 Ml) Confirm Administered Dose 200 mg .ROUTE .STK-MED ONE Stop: 02/23/20 08:25 - Interaction Disposition, : at Bedside Feeding: Attempted ; Nursed Fair/Poor, Other (see below) (pumping as well, awaiting full milk supply) Support Person: Significant Other - Recovery Exam Fundal Tone: Firm Fundal Level: 2 Fingerbreadths Below Umbilicus Fundal Placement: Midline Lochia Amount: Scant Lochia Color: Rubra/Red Perineum Description: Intact, Minimal Bruising/Swelling - Exam General: Alert Lungs: Normal Respiratory Effort Cardiovascular: Regular Rate GI/Abdominal Exam: Soft, Non-Tender Extremities: Normal Inspection, Pedal Edema (1+) Skin: Warm, Dry, Intact Wound/Incisions: Dressing Dry and Intact Neurological: No New Focal Deficit Psy/Mental Status: Normal Mood - Problem List Review Problem List Initiated/Reviewed/Updated: Yes - Assessment Assessment:: 24 year old G5 now P3114 POD 1 s/p repeat lower transverse section - Plan Plan:: Routine /postoperative cares * VSS, afebrile * Urine output adequate overnight, awaiting independent void * Encourage fluid intake and ambulation today * Regular diet as tolerated * , nursing assisted as needed Anemia * Hgb 9.8> 8.4; EBL 600cc * Asymptomatic * Will order PO iron supplementation today Dispo: stable. Continue cares today. Anticipate discharge POD 2 or 3.
--- NOTE | 2020-02-24 09:42 | PCM48HPAN ---
Post Anesthesia Note - EVALUATION WITHIN 48HRS OF ANESTHETIC Vital Signs in Normal Range: Yes Patient Participated in Evaluation: Yes Respiratory Function Stable: Yes Airway Patent: Yes Cardiovascular Function Stable: Yes Hydration Status Stable: Yes Pain Control Satisfactory: Yes Nausea and Vomiting Control Satisfactory: Yes Mental Status Recovered: Yes Vital Signs: Last Vital Signs Temp 36.6 C 02/24/20 07:55 Pulse 105 H 02/24/20 09:00 Resp 18 02/24/20 09:00 BP 130/74 02/24/20 07:55 Pulse Ox 95 02/24/20 09:00
[2020-02-24] MEDS: Docusate Sodium 100 MG Cap PO SCH ×2 (10:12→21:33)
[2020-02-24] MEDS: Ferrous Sulfate 325 MG Tab PO SCH ×2 (10:12→18:29)
[2020-02-24] MEDS: Acetaminophen/oxyCODONE 325-5 MG Tab PO PRN ×2 (15:16→19:49)
[2020-02-24] MEDS: Ibuprofen 800 MG Tab PO PRN (16:39)
[2020-02-24] MEDS ORDERED: Ferrous Sulfate 325 MG Tab PO SCH (17:00)
[2020-02-25] MEDS: Ibuprofen 800 MG Tab PO PRN ×3 (00:10→17:42)
[2020-02-25] MEDS: Acetaminophen/oxyCODONE 325-5 MG Tab PO PRN ×3 (00:10→20:19)
[2020-02-25] MEDS: Ferrous Sulfate 325 MG Tab PO SCH ×2 (08:05→17:42)
[2020-02-25] MEDS: Docusate Sodium 100 MG Cap PO SCH ×2 (08:05→20:20)
--- NOTE | 2020-02-25 10:09 | PCM.PNPP ---
- General Info Date of Service: 02/25/20 Admission Dx/Problem (Free Text): Repeat lower transverse section Subjective Update: Resting comfortably in bed this morning. Reports pain well controlled. Ambulating and voiding without difficulty. Tolerating PO diet. and pumping for baby. Denies fever/chills, lightheadedness/dizziness, nausea/vomiting or heavy vaginal bleeding. - General Info Date of Service: 02/25/20 - Patient Data Vital Signs - Most Recent: Last Vital Signs Temp 98.1 F 02/25/20 08:11 Pulse 95 02/25/20 08:11 Resp 18 02/25/20 08:11 BP 141/82 H 02/25/20 09:19 Pulse Ox 98 02/25/20 08:11 Weight - Most Recent: 213 lb Med Orders - Current: Current Medications Bisacodyl (Dulcolax) 10 mg RECTAL ONETIME PRN PRN Reason: Constipation Butorphanol Tartrate (Stadol) 1 mg IVPUSH Q1H PRN PRN Reason: Pain Carboprost Tromethamine (Hemabate Ds) 250 mcg IM ASDIRECTED PRN PRN Reason: Post Hemorrhage Diphenhydramine HCl (Benadryl) 25 mg IVPUSH Q6H PRN PRN Reason: Itching or Nausea Docusate Sodium (Colace) 100 mg PO BID [facility] Last Admin: 02/25/20 08:05 Dose: 100 mg Documented by: Emollient Ointment (Lansinoh Hpa) 0 gm TOP ASDIRECTED PRN PRN Reason: Sore Nipples Last Admin: 02/23/20 11:21 Dose: 7 gm Documented by: Fentanyl (Sublimaze) 50 mcg IVPUSH Q1H PRN PRN Reason: Pain (severe 7-10) Ferrous Sulfate (Ferrous Sulfate) 325 mg PO BIDMEALS [facility] Last Admin: 02/25/20 08:05 Dose: 325 mg Documented by: Oxytocin/Sodium Chloride (Oxytocin 30 Unit/500 Ml-Ns) 30 unit in 500 mls @ 250 mls/hr IV TITRATE [facility] Lactated Ringer's (Ringers, Lactated) 1,000 mls @ 150 mls/hr IV ASDIRECTED [facility] Oxytocin/Sodium Chloride (Oxytocin 30 Unit/500 Ml-Ns) 30 unit in 500 mls @ 999 mls/hr IV TITRATE [facility] Tranexamic Acid 1,000 mg/ (Sodium Chloride) 110 mls @ 660 mls/hr IV ONETIME PRN PRN Reason: Bleeding Lactated Ringer's (Ringers, Lactated) 1,000 mls @ 500 mls/hr IV BOLUS [facility] Last Admin: 02/23/20 07:59 Dose: 999 mls/hr Documented by: Lactated Ringer's (Ringers, Lactated) 1,000 mls @ 125 mls/hr IV ASDIRECTED [facility] Last Infusion: 02/23/20 17:55 Dose: 125 mls/hr Documented by: Oxytocin/Lactated Ringer's (Pitocin In Lr 30 Units/500 Ml) 30 unit in 500 mls @ 2 mls/hr IV TITRATE [facility]; Protocol Tranexamic Acid 1,000 mg/ (Sodium Chloride) 110 mls @ 660 mls/hr IV ONETIME PRN PRN Reason: Bleeding Ibuprofen (Motrin) 800 mg PO Q8H PRN PRN Reason: mild pain or fever Last Admin: 02/25/20 08:05 Dose: 800 mg Documented by: Lidocaine HCl (Xylocaine 1%) 50 ml INJECT ONETIME PRN PRN Reason: Laceration repair Methylergonovine Maleate (Methergine) 0.2 mg IM ASDIRECTED PRN PRN Reason: Post Hemorrhage Methylergonovine Maleate (Methergine) 0.2 mg IM ONETIME PRN PRN Reason: Excessive Vaginal Bleeding Misoprostol (Cytotec) 200 mcg PO ONETIME PRN PRN Reason: Post Hemorrhage Misoprostol (Cytotec) 1,000 mcg RECTAL ONETIME PRN PRN Reason: excessive bleeding Nalbuphine HCl (Nubain) 10 mg IVPUSH Q1H PRN PRN Reason: Pain (severe 7-10) Nalbuphine HCl (Nubain) 5 mg IVPUSH ASDIRECTED PRN PRN Reason: Itching Last Admin: 02/23/20 13:19 Dose: 5 mg Documented by: Ondansetron HCl (Zofran) 4 mg IVPUSH Q6H PRN PRN Reason: Nausea Ondansetron HCl (Zofran) 4 mg IVPUSH Q4H PRN PRN Reason: Nausea/Vomiting Last Admin: 02/23/20 11:19 Dose: 4 mg Documented by: Oxycodone/Acetaminophen (Percocet 325-5 Mg) 2 tab PO Q6H PRN PRN Reason: Pain (moderate 4-6) Oxycodone/Acetaminophen (Percocet 325-5 Mg) 1 tab PO Q4H PRN PRN Reason: Pain (moderate 4-6) Last Admin: 02/25/20 08:06 Dose: 1 tab Documented by: Oxycodone/Acetaminophen (Percocet 325-5 Mg) 2 tab PO Q4H PRN PRN Reason: Pain (moderate 4-6) Oxytocin (Pitocin) 10 unit IM ASDIRECTED PRN PRN Reason: Excessive Vaginal Bleeding Sodium Chloride (Saline Flush) 10 ml FLUSH ASDIRECTED PRN PRN Reason: Keep Vein Open Sodium Chloride (Saline Flush) 2.5 ml FLUSH ASDIRECTED PRN PRN Reason: Keep Vein Open Sodium Chloride (Normal Saline) 10 ml IV ASDIRECTED PRN PRN Reason: IV Use Sterile Water (Sterile Water For Irrigation) 1,000 ml IRR ASDIRECTED PRN PRN Reason: delivery Discontinued Medications Citric Acid/Sodium Citrate (Bicitra Solution) 30 ml PO ONETIME ONE Stop: 02/23/20 05:26 Last Admin: 02/23/20 10:54 Dose: Not Given Documented by: Diphenhydramine HCl (Benadryl) 25 mg IVPUSH Q4H PRN PRN Reason: Itching Stop: 02/24/20 09:05 Fentanyl (Sublimaze) Confirm Administered Dose 100 mcg .ROUTE .STK-MED ONE Stop: 02/23/20 08:37 Furosemide (Lasix) 10 mg IVPUSH NOW ONE Stop: 02/23/20 16:47 Last Admin: 02/23/20 17:15 Dose: 10 mg Documented by: Cefazolin Sodium/Dextrose 2 gm (/ Premix) 50 mls @ 100 mls/hr IV ONETIME ONE Stop: 02/23/20 05:54 Last Admin: 02/23/20 10:54 Dose: Not Given Documented by: Ketorolac Tromethamine (Toradol) 30 mg IVPUSH Q6H [facility] Stop: 02/24/20 09:31 Last Admin: 02/24/20 10:12 Dose: 30 mg Documented by: Midazolam HCl (Versed 1 Mg/Ml) Confirm Administered Dose 2 mg .ROUTE .STK-MED ONE Stop: 02/23/20 08:24 Morphine Sulfate (Duramorph Pf) Confirm Administered Dose 10 mg .ROUTE .STK-MED ONE Stop: 02/23/20 07:11 Naloxone HCl (Narcan) 0.1 mg IVPUSH ONETIME PRN PRN Reason: Respiratory Depression Stop: 02/24/20 09:05 Ondansetron HCl (Zofran) Confirm Administered Dose 4 mg .ROUTE .STK-MED ONE Stop: 02/23/20 07:12 Oxytocin (Pitocin) Confirm Administered Dose 20 unit .ROUTE .STK-MED ONE Stop: 02/23/20 07:12 Phenylephrine HCl (Raghu-Synephrine) Confirm Administered Dose 10 mg .ROUTE .STK- MED ONE Stop: 02/23/20 07:12 Propofol (Diprivan 20 Ml) Confirm Administered Dose 200 mg .ROUTE .STK-MED ONE Stop: 02/23/20 08:25 - Infant Interaction Disposition, : Maud in Room with Family Interaction: Holding Infant Feeding: Breastfed ; Nursed Well, Other (see below) (pumping as well, awaiting full milk supply) Support Person: Significant Other - Recovery Exam Fundal Tone: Firm Fundal Level: 2 Fingerbreadths Below Umbilicus Fundal Placement: Midline Lochia Amount: Scant Lochia Color: Rubra/Red Perineum Description: Intact, Minimal Bruising/Swelling Episiotomy/Laceration: None Bladder Status: Voiding Urinary Elimination: Indwelling Catheter - Exam General: Alert Lungs: Clear to Auscultation, Normal Respiratory Effort Cardiovascular: Regular Rate, Regular Rhythm GI/Abdominal Exam: Soft, Non-Tender Extremities: Normal Inspection, Pedal Edema (1+) Skin: Warm, Dry, Intact Wound/Incisions: Healing Well Neurological: No New Focal Deficit Psy/Mental Status: Normal Mood - Problem List Review Problem List Initiated/Reviewed/Updated: Yes - My Orders Last 24 Hours: My Active Orders 02/24/20 10:15 Ferrous Sulfate 325 mg PO BIDMEALS 02/25/20 10:05 Ready for Discharge [RC] PER UNIT ROUTINE - Assessment Assessment:: 24 year old G5 now P3114 POD 2 s/p repeat lower transverse section - Plan Plan:: Routine /postoperative cares * VSS, afebrile * Encourage fluid intake and ambulation today * Regular diet as tolerated * , nursing assisted as needed Anemia * Hgb 9.8> 8.4; EBL 600cc * Asymptomatic * Continue PO iron supplementation today Dispo: stable. Continue cares. Anticipate discharge today pending maternal/ status. Reviewed options for contraception. Patient desires Paraguard IUD 6-8 weeks . Undecided on interim options, OCPs vs. Depo provera. Reviewed discharge precautions.
[2020-02-25] MEDS ORDERED: Labetalol 100 MG Tab PO SCH (15:15)
[2020-02-25 15:34] LABS: BLOOD UREA NITROGEN,BUN 12 mg/dL (7.0-18.0); CARBON DIOXIDE,CO2 24.9 mmol/L (21.0-32.0); CHLORIDE,CL 107 mmol/L (98-107); GLUCOSE RANDOM 95 mg/dL (74-106); POTASSIUM,K 4.1 mmol/L (3.5-5.1); SODIUM,NA 143 mmol/L (136-145)
[2020-02-26] MEDS: Acetaminophen/oxyCODONE 325-5 MG Tab PO PRN ×3 (00:50→14:51)
[2020-02-26] MEDS ORDERED: Labetalol 100 MG Tab PO SCH ×5 (04:00→21:00)
[2020-02-26] MEDS: Ibuprofen 800 MG Tab PO PRN ×2 (04:39→20:55)
[2020-02-26] MEDS ORDERED: Labetalol 100 MG Tab ONE (04:43)
[2020-02-26] MEDS: Docusate Sodium 100 MG Cap PO SCH ×2 (08:01→20:53)
[2020-02-26] MEDS: Ferrous Sulfate 325 MG Tab PO SCH ×2 (08:02→20:53)
--- NOTE | 2020-02-26 09:28 | PCM.PNPP ---
- General Info Date of Service: 02/26/20 Admission Dx/Problem (Free Text): Quaternary lower transverse section Subjective Update: Patient seen at bedside , she is s/p quaternary . She is having Increased BPs from 02/23 , Peak BP was 178/100 Labs done : AST /ALT - wnl , Cr - normal . She denies headache , RUQ pain and BV . She was started on labetalol 100mg bid Last elevated BP @ 4am 02/24 - 161/87 . she was given last labetalol at 4.47 am , repeat BP at 815am 143/87 Functional Status: Reports: Pain Controlled, Tolerating Diet, Ambulating, Urinating - Review of Systems General: Reports: No Symptoms HEENT: Reports: No Symptoms Pulmonary: Reports: No Symptoms Cardiovascular: Reports: No Symptoms Gastrointestinal: Reports: No Symptoms Genitourinary: Reports: No Symptoms Musculoskeletal: Reports: No Symptoms Skin: Reports: No Symptoms Neurological: Reports: No Symptoms Psychiatric: Reports: No Symptoms - General Info Date of Service: 02/26/20 - Patient Data Vital Signs - Most Recent: Last Vital Signs Temp 36.6 C 02/26/20 08:15 Pulse 98 02/26/20 08:15 Resp 18 02/26/20 08:15 BP 135/80 02/26/20 08:15 Pulse Ox 95 02/26/20 08:15 Weight - Most Recent: 96.615 kg Lab Results - Last 24 Hours: Laboratory Results - last 24 hr 02/25/20 02/25/20 Range/Units 14:58 14:58 WBC 14.67 H (4.0-11.0) K/uL RBC 3.67 L (4.30-5.90) M/uL Hgb 8.9 L (12.0-16.0) g/dL Hct 29.5 L (36.0-46.0) % MCV 80.4 (80.0-98.0) fL MCH 24.3 L (27.0-32.0) pg MCHC 30.2 L (31.0-37.0) g/dL RDW Std Deviation 50.6 (28.0-62.0) fl RDW Coeff of Michael 17 H (11.0-15.0) % Plt Count 290 (150-400) K/uL MPV 10.80 (7.40-12.00) fL Neut % (Auto) 74.5 (48.0-80.0) % Lymph % (Auto) 17.0 (16.0-40.0) % Lee % (Auto) 5.8 (0.0-15.0) % Eos % (Auto) 2.5 (0.0-7.0) % Baso % (Auto) 0.2 (0.0-1.5) % Neut # (Auto) 10.9 H (1.4-5.7) K/uL Lymph # (Auto) 2.5 H (0.6-2.4) K/uL Lee # (Auto) 0.9 H (0.0-0.8) K/uL Eos # (Auto) 0.4 (0.0-0.7) K/uL Baso # (Auto) 0.0 (0.0-0.1) K/uL Nucleated RBC % 0.5 /100WBC Nucleated RBCs # 0 K/uL Sodium 143 (136-145) mmol/L Potassium 4.1 (3.5-5.1) mmol/L Chloride 107 (98-107) mmol/L Carbon Dioxide 24.9 (21.0-32.0) mmol/L BUN 12 (7.0-18.0) mg/dL Creatinine 0.9 (0.6-1.0) mg/dL Est Cr Clr Drug Dosing 69.23 mL/min Estimated GFR (MDRD) > 60.0 ml/min Glucose 95 (74-106) mg/dL Uric Acid 5.4 (2.6-7.2) mg/dL Calcium 8.5 (8.5-10.1) mg/dL Total Bilirubin 0.1 L (0.2-1.0) mg/dL AST 16 (15-37) IU/L ALT 12 L (14-63) IU/L Alkaline Phosphatase 113 (46-116) U/L Total Protein 6.4 (6.4-8.2) g/dL Albumin 2.2 L (3.4-5.0) g/dL Globulin 4.2 H (2.6-4.0) g/dL Albumin/Globulin Ratio 0.5 L (0.9-1.6) Med Orders - Current: Current Medications Bisacodyl (Dulcolax) 10 mg RECTAL ONETIME PRN PRN Reason: Constipation Diphenhydramine HCl (Benadryl) 25 mg IVPUSH Q6H PRN PRN Reason: Itching or Nausea Docusate Sodium (Colace) 100 mg PO BID [facility] Last Admin: 02/26/20 08:01 Dose: 100 mg Documented by: Emollient Ointment (Lansinoh Hpa) 0 gm TOP ASDIRECTED PRN PRN Reason: Sore Nipples Last Admin: 02/23/20 11:21 Dose: 7 gm Documented by: Fentanyl (Sublimaze) 50 mcg IVPUSH Q1H PRN PRN Reason: Pain (severe 7-10) Ferrous Sulfate (Ferrous Sulfate) 325 mg PO BIDMEALS [facility] Last Admin: 02/26/20 08:02 Dose: 325 mg Documented by: Oxytocin/Sodium Chloride (Oxytocin 30 Unit/500 Ml-Ns) 30 unit in 500 mls @ 250 mls/hr IV TITRATE [facility] Lactated Ringer's (Ringers, Lactated) 1,000 mls @ 500 mls/hr IV BOLUS [facility] Last Admin: 02/23/20 07:59 Dose: 999 mls/hr Documented by: Lactated Ringer's (Ringers, Lactated) 1,000 mls @ 125 mls/hr IV ASDIRECTED [facility] Last Infusion: 02/23/20 17:55 Dose: 125 mls/hr Documented by: Oxytocin/Lactated Ringer's (Pitocin In Lr 30 Units/500 Ml) 30 unit in 500 mls @ 2 mls/hr IV TITRATE [facility]; Protocol Tranexamic Acid 1,000 mg/ (Sodium Chloride) 110 mls @ 660 mls/hr IV ONETIME PRN PRN Reason: Bleeding Ibuprofen (Motrin) 800 mg PO Q8H PRN PRN Reason: mild pain or fever Last Admin: 02/26/20 04:39 Dose: 800 mg Documented by: Labetalol HCl (Normodyne) 100 mg PO BID@0400,1600 [facility] Methylergonovine Maleate (Methergine) 0.2 mg IM ONETIME PRN PRN Reason: Excessive Vaginal Bleeding Misoprostol (Cytotec) 1,000 mcg RECTAL ONETIME PRN PRN Reason: excessive bleeding Nalbuphine HCl (Nubain) 5 mg IVPUSH ASDIRECTED PRN PRN Reason: Itching Last Admin: 02/23/20 13:19 Dose: 5 mg Documented by: Ondansetron HCl (Zofran) 4 mg IVPUSH Q6H PRN PRN Reason: Nausea Ondansetron HCl (Zofran) 4 mg IVPUSH Q4H PRN PRN Reason: Nausea/Vomiting Last Admin: 02/23/20 11:19 Dose: 4 mg Documented by: Oxycodone/Acetaminophen (Percocet 325-5 Mg) 2 tab PO Q6H PRN PRN Reason: Pain (moderate 4-6) Oxycodone/Acetaminophen (Percocet 325-5 Mg) 1 tab PO Q4H PRN PRN Reason: Pain (moderate 4-6) Last Admin: 02/26/20 00:50 Dose: 1 tab Documented by: Oxycodone/Acetaminophen (Percocet 325-5 Mg) 2 tab PO Q4H PRN PRN Reason: Pain (moderate 4-6) Last Admin: 02/25/20 12:38 Dose: 2 tab Documented by: Oxytocin (Pitocin) 10 unit IM ASDIRECTED PRN PRN Reason: Excessive Vaginal Bleeding Sodium Chloride (Saline Flush) 10 ml FLUSH ASDIRECTED PRN PRN Reason: Keep Vein Open Sodium Chloride (Saline Flush) 2.5 ml FLUSH ASDIRECTED PRN PRN Reason: Keep Vein Open Sodium Chloride (Normal Saline) 10 ml IV ASDIRECTED PRN PRN Reason: IV Use Discontinued Medications Butorphanol Tartrate (Stadol) 1 mg IVPUSH Q1H PRN PRN Reason: Pain Carboprost Tromethamine (Hemabate Ds) 250 mcg IM ASDIRECTED PRN PRN Reason: Post Hemorrhage Citric Acid/Sodium Citrate (Bicitra Solution) 30 ml PO ONETIME ONE Stop: 02/23/20 05:26 Last Admin: 02/23/20 10:54 Dose: Not Given Documented by: Diphenhydramine HCl (Benadryl) 25 mg IVPUSH Q4H PRN PRN Reason: Itching Stop: 02/24/20 09:05 Fentanyl (Sublimaze) Confirm Administered Dose 100 mcg .ROUTE .STK-MED ONE Stop: 02/23/20 08:37 Furosemide (Lasix) 10 mg IVPUSH NOW ONE Stop: 02/23/20 16:47 Last Admin: 02/23/20 17:15 Dose: 10 mg Documented by: Lactated Ringer's (Ringers, Lactated) 1,000 mls @ 150 mls/hr IV ASDIRECTED [facility] Oxytocin/Sodium Chloride (Oxytocin 30 Unit/500 Ml-Ns) 30 unit in 500 mls @ 999 mls/hr IV TITRATE [facility] Tranexamic Acid 1,000 mg/ (Sodium Chloride) 110 mls @ 660 mls/hr IV ONETIME PRN PRN Reason: Bleeding Cefazolin Sodium/Dextrose 2 gm (/ Premix) 50 mls @ 100 mls/hr IV ONETIME ONE Stop: 02/23/20 05:54 Last Admin: 02/23/20 10:54 Dose: Not Given Documented by: Ketorolac Tromethamine (Toradol) 30 mg IVPUSH Q6H [facility] Stop: 02/24/20 09:31 Last Admin: 02/24/20 10:12 Dose: 30 mg Documented by: Labetalol HCl (Normodyne) 100 mg PO BID [facility] Last Admin: 02/25/20 15:52 Dose: 100 mg Documented by: Labetalol HCl (Normodyne) 100 mg PO BID@0400 [facility] Last Admin: 02/26/20 04:47 Dose: 100 mg Documented by: Labetalol HCl (Normodyne) Confirm Administered Dose 100 mg .ROUTE .STK-MED ONE Stop: 02/26/20 04:44 Last Admin: 02/26/20 04:15 Dose: Not Given Documented by: Lidocaine HCl (Xylocaine 1%) 50 ml INJECT ONETIME PRN PRN Reason: Laceration repair Methylergonovine Maleate (Methergine) 0.2 mg IM ASDIRECTED PRN PRN Reason: Post Hemorrhage Midazolam HCl (Versed 1 Mg/Ml) Confirm Administered Dose 2 mg .ROUTE .STK-MED ONE Stop: 02/23/20 08:24 Misoprostol (Cytotec) 200 mcg PO ONETIME PRN PRN Reason: Post Hemorrhage Morphine Sulfate (Duramorph Pf) Confirm Administered Dose 10 mg .ROUTE .STK-MED ONE Stop: 02/23/20 07:11 Nalbuphine HCl (Nubain) 10 mg IVPUSH Q1H PRN PRN Reason: Pain (severe 7-10) Naloxone HCl (Narcan) 0.1 mg IVPUSH ONETIME PRN PRN Reason: Respiratory Depression Stop: 02/24/20 09:05 Ondansetron HCl (Zofran) Confirm Administered Dose 4 mg .ROUTE .STK-MED ONE Stop: 02/23/20 07:12 Oxytocin (Pitocin) Confirm Administered Dose 20 unit .ROUTE .STK-MED ONE Stop: 02/23/20 07:12 Phenylephrine HCl (Raghu-Synephrine) Confirm Administered Dose 10 mg .ROUTE .STK- MED ONE Stop: 02/23/20 07:12 Propofol (Diprivan 20 Ml) Confirm Administered Dose 200 mg .ROUTE .STK-MED ONE Stop: 02/23/20 08:25 Sterile Water (Sterile Water For Irrigation) 1,000 ml IRR ASDIRECTED PRN PRN Reason: delivery - Infant Interaction Infant Disposition, : in Room with Family Interaction: Holding Feeding: Breastfed Infant; Nursed Well, Other (see below) (pumping as well, awaiting full milk supply) Support Person: Significant Other - Recovery Exam Fundal Tone: Firm Fundal Level: 1 Fingerbreadths Below Umbilicus Fundal Placement: Midline Lochia Amount: Scant Lochia Color: Rubra/Red Perineum Description: Intact, Minimal Bruising/Swelling Episiotomy/Laceration: None Bladder Status: Nonpalpable, Voiding Urinary Elimination: Voided - Exam General: Alert HEENT: Pupils Equal Neck: Supple Lungs: Clear to Auscultation Cardiovascular: Regular Rate, Regular Rhythm GI/Abdominal Exam: Normal Bowel Sounds Extremities: Normal Inspection Wound/Incisions: Dressing Dry and Intact Neurological: No New Focal Deficit Psy/Mental Status: Alert - Problem List & Annotations (1) Hypertension affecting , delivered, current hospitalization SNOMED Code(s): 065070318, 207590717 Code(s): O16.4 - UNSPECIFIED MATERNAL HYPERTENSION, COMPLICATING CHILDBIRTH Status: Acute Current Visit: Yes - Problem List Review Problem List Initiated/Reviewed/Updated: Yes - My Orders Last 24 Hours: My Active Orders 02/26/20 09:09 COMPREHENSIVE METABOLIC PN,CMP [CHEM] Routine 02/26/20 09:10 PROTEIN/CREATININE RATIO,URINE [URCHEM] Routine - Assessment Assessment:: 24 year old G5 now P3114 POD 2 24to P3114 s/p quaternary POD3 Gestational Hypertension r/o preclampsia Anemia on Iron , voiding and tolerating regular diet - Plan Plan:: CMP and PCR today BP check q 3hrly Labetalol 100mg stat now I will increase labetalol to 200mg q 12hrly Preclampsia precautions given Pain control as needed Venodynes in bed Regular diet I will monitor BP today and if normal will d/c home tomorrow
[2020-02-26] MEDS ORDERED: Labetalol 100 MG Tab PO ONE (09:29)
[2020-02-26 10:30] LABS: BLOOD UREA NITROGEN,BUN 14 mg/dL (7.0-18.0); CARBON DIOXIDE,CO2 22.7 mmol/L (21.0-32.0); CHLORIDE,CL 107 mmol/L (98-107); GLUCOSE RANDOM 77 mg/dL (74-106); SODIUM,NA 140 mmol/L (136-145)
[2020-02-26] MEDS: Labetalol 100 MG Tab PO SCH (15:52)
--- NOTE | 2020-02-26 17:07 | PCM.SN.2 ---
- Free Text/Narrative Note: Patient BP reviewed for the day ranging from 110 - 140s/60 -80s . She denies any complains I will observe BP till AM and possible discharge in AM
--- NOTE | 2020-02-26 18:04 | PCM.SN.2 ---
- Free Text/Narrative Note: Notified by RN that Crystal Chilel, faa certified powerplant mechanic, states per COVID policy, unable to stay at hospital while mother is admitted, currently day #3. Mother is <24 hours from last severe-range blood pressure and increase in Labetalol. Recommend that patient stay in hospital until as least tomorrow (24 hours without severe-range BP). Patient is . It is detrimental to infant if from mother at this stage of life, due to need for feeding and bonding. Patient does not want to be from her infant. Message left with Crystal Chilel to discuss; awaiting call back. Update: As patient is , may stay in patient's room. not allowed to stay and patient must perform all cares without nursing assistance. Update: Patient contemplated still leaving since father cannot stay in room. Discussed need to sign out against medical advice and risk that patient could have elevated blood pressure and either a stroke or seizure at home. After discussion, patient has opted to stay admitted overnight.
[2020-02-26] MEDS ORDERED: Acetaminophen/Butalbital/Caffeine 325-50-40 MG Tab PO PRN (19:15)
[2020-02-27] MEDS: Acetaminophen/oxyCODONE 325-5 MG Tab PO PRN ×2 (00:01→04:17)
[2020-02-27] MEDS: Labetalol 100 MG Tab PO SCH (04:14)
--- NOTE | 2020-02-27 08:33 | PCM.PNPP ---
- General Info Date of Service: 02/27/20 Admission Dx/Problem (Free Text): Quaternary lower transverse section Subjective Update: Patient seen at bedside , she denies any complains . she denies headache , BV and RUQ BPs - 120s - 150s/80s She is voiding and Functional Status: Reports: Pain Controlled, Tolerating Diet, Ambulating, Urinating - Review of Systems General: Reports: No Symptoms HEENT: Reports: No Symptoms Pulmonary: Reports: No Symptoms Cardiovascular: Reports: No Symptoms Gastrointestinal: Reports: No Symptoms Genitourinary: Reports: No Symptoms Musculoskeletal: Reports: No Symptoms Skin: Reports: No Symptoms Neurological: Reports: No Symptoms Psychiatric: Reports: No Symptoms - General Info Date of Service: 02/27/20 - Patient Data Vital Signs - Most Recent: Last Vital Signs Temp 36.0 C L 02/27/20 04:16 Pulse 92 02/27/20 04:16 Resp 17 02/27/20 04:16 BP 138/80 02/27/20 04:16 Pulse Ox 96 02/27/20 04:16 Weight - Most Recent: 96.615 kg Lab Results - Last 24 Hours: Laboratory Results - last 24 hr 02/23/20 02/26/20 02/26/20 Range/Units 05:50 09:45 11:16 Sodium 140 (136-145) mmol/L Potassium 4.0 (3.5-5.1) mmol/L Chloride 107 (98-107) mmol/L Carbon Dioxide 22.7 (21.0-32.0) mmol/L BUN 14 (7.0-18.0) mg/dL Creatinine 0.8 (0.6-1.0) mg/dL Est Cr Clr Drug Dosing 77.89 mL/min Estimated GFR (MDRD) > 60.0 ml/min Glucose 77 (74-106) mg/dL Calcium 9.0 (8.5-10.1) mg/dL Total Bilirubin 0.1 L (0.2-1.0) mg/dL AST 12 L (15-37) IU/L ALT 13 L (14-63) IU/L Alkaline Phosphatase 101 (46-116) U/L Total Protein 6.1 L (6.4-8.2) g/dL Albumin 2.1 L (3.4-5.0) g/dL Globulin 4.0 (2.6-4.0) g/dL Albumin/Globulin Ratio 0.5 L (0.9-1.6) Ur Random Creatinine 25.2 mg/dL U Random Total Protein 12.7 H (<11.9) mg/dL Protein/Creatinin Ratio 0.5 RPR Non-Reac (Non-Reac) Med Orders - Current: Current Medications Acetaminophen/Butalbital/Caffeine (Fioricet 325-50-40 Mg) 1 tab PO Q6H PRN PRN Reason: Headache Last Admin: 02/26/20 19:43 Dose: 1 tab Documented by: Bisacodyl (Dulcolax) 10 mg RECTAL ONETIME PRN PRN Reason: Constipation Diphenhydramine HCl (Benadryl) 25 mg IVPUSH Q6H PRN PRN Reason: Itching or Nausea Docusate Sodium (Colace) 100 mg PO BID [facility] Last Admin: 02/26/20 20:53 Dose: 100 mg Documented by: Emollient Ointment (Lansinoh Hpa) 0 gm TOP ASDIRECTED PRN PRN Reason: Sore Nipples Last Admin: 02/23/20 11:21 Dose: 7 gm Documented by: Fentanyl (Sublimaze) 50 mcg IVPUSH Q1H PRN PRN Reason: Pain (severe 7-10) Ferrous Sulfate (Ferrous Sulfate) 325 mg PO BIDMEALS [facility] Last Admin: 02/26/20 20:53 Dose: 325 mg Documented by: Oxytocin/Sodium Chloride (Oxytocin 30 Unit/500 Ml-Ns) 30 unit in 500 mls @ 250 mls/hr IV TITRATE [facility] Lactated Ringer's (Ringers, Lactated) 1,000 mls @ 500 mls/hr IV BOLUS [facility] Last Admin: 02/23/20 07:59 Dose: 999 mls/hr Documented by: Lactated Ringer's (Ringers, Lactated) 1,000 mls @ 125 mls/hr IV ASDIRECTED [facility] Last Infusion: 02/23/20 17:55 Dose: 125 mls/hr Documented by: Oxytocin/Lactated Ringer's (Pitocin In Lr 30 Units/500 Ml) 30 unit in 500 mls @ 2 mls/hr IV TITRATE [facility]; Protocol Tranexamic Acid 1,000 mg/ (Sodium Chloride) 110 mls @ 660 mls/hr IV ONETIME PRN PRN Reason: Bleeding Ibuprofen (Motrin) 800 mg PO Q8H PRN PRN Reason: mild pain or fever Last Admin: 02/26/20 20:55 Dose: 800 mg Documented by: Labetalol HCl (Normodyne) 200 mg PO Q12H [facility] Last Admin: 02/27/20 04:14 Dose: 200 mg Documented by: Methylergonovine Maleate (Methergine) 0.2 mg IM ONETIME PRN PRN Reason: Excessive Vaginal Bleeding Misoprostol (Cytotec) 1,000 mcg RECTAL ONETIME PRN PRN Reason: excessive bleeding Nalbuphine HCl (Nubain) 5 mg IVPUSH ASDIRECTED PRN PRN Reason: Itching Last Admin: 02/23/20 13:19 Dose: 5 mg Documented by: Ondansetron HCl (Zofran) 4 mg IVPUSH Q6H PRN PRN Reason: Nausea Ondansetron HCl (Zofran) 4 mg IVPUSH Q4H PRN PRN Reason: Nausea/Vomiting Last Admin: 02/23/20 11:19 Dose: 4 mg Documented by: Oxycodone/Acetaminophen (Percocet 325-5 Mg) 2 tab PO Q6H PRN PRN Reason: Pain (moderate 4-6) Oxycodone/Acetaminophen (Percocet 325-5 Mg) 1 tab PO Q4H PRN PRN Reason: Pain (moderate 4-6) Last Admin: 02/27/20 04:17 Dose: 1 tab Documented by: Oxycodone/Acetaminophen (Percocet 325-5 Mg) 2 tab PO Q4H PRN PRN Reason: Pain (moderate 4-6) Last Admin: 02/25/20 12:38 Dose: 2 tab Documented by: Oxytocin (Pitocin) 10 unit IM ASDIRECTED PRN PRN Reason: Excessive Vaginal Bleeding Sodium Chloride (Saline Flush) 10 ml FLUSH ASDIRECTED PRN PRN Reason: Keep Vein Open Sodium Chloride (Saline Flush) 2.5 ml FLUSH ASDIRECTED PRN PRN Reason: Keep Vein Open Sodium Chloride (Normal Saline) 10 ml IV ASDIRECTED PRN PRN Reason: IV Use Discontinued Medications Butorphanol Tartrate (Stadol) 1 mg IVPUSH Q1H PRN PRN Reason: Pain Carboprost Tromethamine (Hemabate Ds) 250 mcg IM ASDIRECTED PRN PRN Reason: Post Hemorrhage Citric Acid/Sodium Citrate (Bicitra Solution) 30 ml PO ONETIME ONE Stop: 02/23/20 05:26 Last Admin: 02/23/20 10:54 Dose: Not Given Documented by: Diphenhydramine HCl (Benadryl) 25 mg IVPUSH Q4H PRN PRN Reason: Itching Stop: 02/24/20 09:05 Fentanyl (Sublimaze) Confirm Administered Dose 100 mcg .ROUTE .STK-MED ONE Stop: 02/23/20 08:37 Furosemide (Lasix) 10 mg IVPUSH NOW ONE Stop: 02/23/20 16:47 Last Admin: 02/23/20 17:15 Dose: 10 mg Documented by: Lactated Ringer's (Ringers, Lactated) 1,000 mls @ 150 mls/hr IV ASDIRECTED [facility] Oxytocin/Sodium Chloride (Oxytocin 30 Unit/500 Ml-Ns) 30 unit in 500 mls @ 999 mls/hr IV TITRATE [facility] Tranexamic Acid 1,000 mg/ (Sodium Chloride) 110 mls @ 660 mls/hr IV ONETIME PRN PRN Reason: Bleeding Cefazolin Sodium/Dextrose 2 gm (/ Premix) 50 mls @ 100 mls/hr IV ONETIME ONE Stop: 02/23/20 05:54 Last Admin: 02/23/20 10:54 Dose: Not Given Documented by: Ketorolac Tromethamine (Toradol) 30 mg IVPUSH Q6H [facility] Stop: 02/24/20 09:31 Last Admin: 02/24/20 10:12 Dose: 30 mg Documented by: Labetalol HCl (Normodyne) 100 mg PO BID [facility] Last Admin: 02/25/20 15:52 Dose: 100 mg Documented by: Labetalol HCl (Normodyne) 100 mg PO BID@0400 [facility] Last Admin: 02/26/20 04:47 Dose: 100 mg Documented by: Labetalol HCl (Normodyne) 100 mg PO BID@0400,1600 [facility] Labetalol HCl (Normodyne) Confirm Administered Dose 100 mg .ROUTE .STK-MED ONE Stop: 02/26/20 04:44 Last Admin: 02/26/20 04:15 Dose: Not Given Documented by: Labetalol HCl (Normodyne) 100 mg PO ONETIME [facility] Stop: 02/26/20 10:45 Last Admin: 02/26/20 09:58 Dose: 100 mg Documented by: Lidocaine HCl (Xylocaine 1%) 50 ml INJECT ONETIME PRN PRN Reason: Laceration repair Methylergonovine Maleate (Methergine) 0.2 mg IM ASDIRECTED PRN PRN Reason: Post Hemorrhage Midazolam HCl (Versed 1 Mg/Ml) Confirm Administered Dose 2 mg .ROUTE .STK-MED ONE Stop: 02/23/20 08:24 Misoprostol (Cytotec) 200 mcg PO ONETIME PRN PRN Reason: Post Hemorrhage Morphine Sulfate (Duramorph Pf) Confirm Administered Dose 10 mg .ROUTE .STK-MED ONE Stop: 02/23/20 07:11 Nalbuphine HCl (Nubain) 10 mg IVPUSH Q1H PRN PRN Reason: Pain (severe 7-10) Naloxone HCl (Narcan) 0.1 mg IVPUSH ONETIME PRN PRN Reason: Respiratory Depression Stop: 02/24/20 09:05 Ondansetron HCl (Zofran) Confirm Administered Dose 4 mg .ROUTE .STK-MED ONE Stop: 02/23/20 07:12 Oxytocin (Pitocin) Confirm Administered Dose 20 unit .ROUTE .STK-MED ONE Stop: 02/23/20 07:12 Phenylephrine HCl (Raghu-Synephrine) Confirm Administered Dose 10 mg .ROUTE .STK- MED ONE Stop: 02/23/20 07:12 Propofol (Diprivan 20 Ml) Confirm Administered Dose 200 mg .ROUTE .STK-MED ONE Stop: 02/23/20 08:25 Sterile Water (Sterile Water For Irrigation) 1,000 ml IRR ASDIRECTED PRN PRN Reason: delivery - Infant Interaction Disposition, : [place] in Room with Family Infant Interaction: Holding Infant Feeding: Breastfed Infant; Nursed Well, Other (see below) (pumping as well, awaiting full milk supply) Support Person: Significant Other - Recovery Exam Fundal Tone: Firm Fundal Level: 1 Fingerbreadths Below Umbilicus Fundal Placement: Midline Lochia Amount: Scant Lochia Color: Rubra/Red Perineum Description: Intact, Minimal Bruising/Swelling Episiotomy/Laceration: None Bladder Status: Voiding Urinary Elimination: Voided - Exam General: Alert HEENT: Pupils Equal Neck: Supple Lungs: Clear to Auscultation Cardiovascular: Regular Rate, Regular Rhythm GI/Abdominal Exam: Normal Bowel Sounds Wound/Incisions: Dressing Dry and Intact Neurological: No New Focal Deficit Psy/Mental Status: Alert - Problem List & Annotations (1) Hypertension affecting , delivered, current hospitalization SNOMED Code(s): 801011579, 641809455 Code(s): O16.4 - UNSPECIFIED MATERNAL HYPERTENSION, COMPLICATING CHILDBIRTH Status: Acute Current Visit: Yes - Problem List Review Problem List Initiated/Reviewed/Updated: Yes - My Orders Last 24 Hours: My Active Orders 02/26/20 16:00 Labetalol [Normodyne] 200 mg PO Q12H - Assessment Assessment:: 24yo P3114 s/p quaternary POD4 preclampsia, BP stable on Labetalol 200mg bid Anemia on Iron , voiding and tolerating regular diet - Plan Plan:: labetalol to 200mg q 12hrly Preclampsia precautions given Pain control as needed Venodynes in bed Regular diet Discharge home today
[2020-02-27 08:46] VITALS: BP 120/78; PULSE 94
--- NOTE | 2020-02-27 09:17 | OR ---
SURGEON: ELISHA TURCIOS DATE OF PROCEDURE: 02/23/2020 PREOPERATIVE DIAGNOSES: A 24-year-old G5, P2-1-1-3, at 39 weeks 2 days for quaternary section. POSTOPERATIVE DIAGNOSIS: A 24-year-old G5, P2-1-1-3, at 39 weeks 2 days for quaternary section. PROCEDURE: Quaternary section, lower transverse segment. ESTIMATED BLOOD LOSS: 600. INTRAVENOUS FLUID: 1700. URINE OUTPUT: 100. NOTES AND FINDING: A live male delivered at 8:30 a.m. scores are 8 and 9. Weight is 3500 g. ANESTHESIA: Spinal. COMPLICATION: None. BRIEF HISTORY ABOUT THE PATIENT: A 24-year-old G5, P2-1-1-3, at 39 weeks 2 days, low-risk care. The patient was scheduled for a quaternary . She was explained the risks, benefits, and alternatives, and she decided to proceed and signed consent. PROCEDURE IN DETAIL: The patient was taken to the operating room, where spinal anesthesia was performed without difficulty. She was prepared and draped in the dorsal supine position with a leftward tilt. A Pfannenstiel skin incision was made with a scalpel and carried down to the fascia with the Bovie. The fascia was extended and incised laterally, and the incision was from the rectus muscles superiorly and inferiorly. The rectus muscle was in the midline down to the level of the pubic symphysis. Some adhesion was noted, which was gently lysed. The peritoneum was entered in with blunt and sharp dissection. The lower uterine segment was noted, and a lower uterine incision was made, and the fetus was noted to be in cephalic position. The head was elevated to the level of the incision and with fundal pressure was delivered without difficulty. Delayed cord clamping was observed. The cord was clamped and cut. The infant was handed over to the waiting ui software engineer and nursery nurse team. The cord blood gases were obtained. The placenta was delivered via manual massage of the uterine fundus. The uterus was then cleaned with a moist laparotomy sponge. The uterus was repaired in 2 layers. The first layer was with 0 Vicryl. The second layer was with 0 Monocryl. Then, the Juan Jose was removed. The incision was inspected again. A slight point was noted to be oozing, and a figure-of- eight Stitch was made. Afterward noted to be hemostatic. The gutters were cleaned. The bilateral tubes and ovaries were visualized and appeared normal and the rectus was apposed to the midline with 2-0 Vicryl. The fascia was closed with 0 Vicryl. The skin was closed with 3-0 Monocryl on a Kraig needle. COUNTS: All instrument and pad counts were correct x2. AMARILIS / JOSE MIGUEL /[id number] MTDD
[2020-02-27] MEDS: Docusate Sodium 100 MG Cap PO SCH (09:30)
[2020-02-27] MEDS: Ferrous Sulfate 325 MG Tab PO SCH (09:31)
[2020-02-27] MEDS: Ibuprofen 800 MG Tab PO PRN (09:31)
== END 2020-02-27 10:00 | disposition home or self-care (01) | DRG 788 ==
LOC: MW.OB 05:20
PROVIDERS: ADMIT Obstetrics & Gynecology; ATTEND Obstetrics & Gynecology
PROC: 10D00Z1 Extraction of Products of Conception, Low, Open Approach (ICD-10-PCS; principal; 2020-02-23)
DX: O34.211 Maternal care for low transverse scar from previous cesarean delivery (principal); Z3A.39 39 weeks gestation of pregnancy; Z37.0 Single live birth; O99.824 Streptococcus B carrier state complicating childbirth; O14.94 Unspecified pre-eclampsia, complicating childbirth; O99.02 Anemia complicating childbirth; D50.9 Iron deficiency anemia, unspecified
CPT/HCPCS: 36415; 59025; 80048; 80053; 82570; 84156; 84550; 85014; 85018; 85025; 85027; 86592; 86850; 86900; 86901; A9270-GY; J1885; J1940; J2250; J2270; J2300; J2370; J2405; J2590; J2704; J3010; J7120

== ENCOUNTER 2022-10-18 15:40 | Emergency (ER) | payer MEDICAID ==
[2022-10-18] MEDS ORDERED: Sodium Chloride 0.9% 2.5 ML Syringe FLUSH PRN (17:56)
[2022-10-18] MEDS ORDERED: Sodium Chloride 0.9% 10 ML Syringe FLUSH PRN (17:56)
[2022-10-18] MEDS ORDERED: Sodium Chloride 0.9% 1,000 ML IV STA ×2 (18:00→18:15)
[2022-10-18 18:04] LABS: BILIRUBIN,URINE NEGATIVE (NEGATIVE); COLOR,URINE YELLOW; GLUCOSE,URINE NEGATIVE (NEGATIVE); KETONES,URINE >=80 mg/dL (NEGATIVE); LEUKOCYTE ESTERASE,URINE NEGATIVE (NEGATIVE); NITRITE,URINE NEGATIVE (NEGATIVE); OCCULT BLOOD,URINE NEGATIVE (NEGATIVE); PH,URINE 6.5 (5.0-8.0); PROTEIN,URINE NEGATIVE (NEGATIVE)
[2022-10-18 18:08] LABS: APPEARANCE,URINE HAZY
[2022-10-18 18:09] LABS: BASOPHILS PERCENT AUTO 0.1 % (0.0-1.5); EOSINOPHILS ABSOLUTE AUTO 0.1 K/uL (0.0-0.7); EOSINOPHILS PERCENT AUTO 0.7 % (0.0-7.0); HEMATOCRIT 35.7 % (36.0-46.0); HEMOGLOBIN 11.8 g/dL (12.0-16.0); LYMPHOCYTES ABSOLUTE AUTO 2.9 K/uL (0.6-2.4); LYMPHOCYTES PERCENT AUTO 19.8 % (16.0-40.0); MEAN CORPUSCULAR HEMOGLOBIN 26.5 pg (27.0-32.0); MEAN CORPUSCULAR HGB CONC 33.1 g/dL (31.0-37.0); MONOCYTES ABSOLUTE AUTO 0.6 K/uL (0.0-0.8); MONOCYTES PERCENT AUTO 4.1 % (0.0-15.0); NEUTROPHILS ABSOLUTE AUTO 11.1 K/uL (1.4-5.7); NEUTROPHILS PERCENT AUTO 75.3 % (48.0-80.0); PLATELET COUNT,PLT 238 K/uL (150-400); RED BLOOD CELL COUNT 4.46 M/uL (4.30-5.90); WHITE BLOOD CELL COUNT,WBC 14.79 K/uL (4.0-11.0)
[2022-10-18 18:45] LABS: A/G RATIO 0.7 (0.9-1.6); ALBUMIN 2.9 g/dL (3.4-5.0); BILIRUBIN TOTAL 0.2 mg/dL (0.2-1.0); CALCIUM 8.8 mg/dL (8.5-10.1); CARBON DIOXIDE,CO2 23.4 mmol/L (21.0-32.0); CREATININE 0.7 mg/dL (0.6-1.0); EST CRCL DRUG DOSING (CG) 86.71 mL/min; POTASSIUM,K 3.3 mmol/L (3.5-5.1); PROTEIN TOTAL,TP 7.3 g/dL (6.4-8.2)
[2022-10-18 21:01] VITALS: BP 126/74; PULSE 86
== END 2022-10-18 20:12 | disposition home or self-care (01) ==
LOC: MW.ED 15:40
DX: O99.512 Diseases of the respiratory system complicating pregnancy, second trimester (principal); J03.90 Acute tonsillitis, unspecified; Z3A.20 20 weeks gestation of pregnancy; Z20.822 Contact with and (suspected) exposure to COVID-19
CPT/HCPCS: 36415; 80053; 81003; 83690; 85025; 86308; 87635; 87651; 96360; 99284; J3490; J7030; 99283; U0002

== ENCOUNTER 2023-03-08 16:12 | Observation (INO) | payer MEDICAID ==
[2023-03-08] MEDS: Lactated Ringers 1,000 ML IV SCH (16:52)
[2023-03-08] MEDS: Terbutaline 1 MG/ML SDV SUBCUT SCH (16:56)
[2023-03-08] MEDS ORDERED: Sodium Chloride 0.9% 2.5 ML Syringe FLUSH PRN (18:27)
[2023-03-08] MEDS ORDERED: Sodium Chloride 0.9% 20 ML SDV IV PRN (18:27)
[2023-03-08] MEDS ORDERED: Sodium Chloride 0.9% 10 ML Syringe FLUSH PRN (18:27)
[2023-03-08] MEDS ORDERED: Calcium Gluconate 10% 1 GM/10 ML SDV IV PRN (18:27)
[2023-03-08 18:31] LABS: CANDIDA DNA PROBE POSITIVE (NEGATIVE); GARDNERELLA DNA PROBE POSITIVE (NEGATIVE); TRICHOMONAS DNA PROBE NEGATIVE (NEGATIVE)
[2023-03-08] MEDS: Magnesium Sulfate/Water 4 GM in Premix Bag 1 BAG IV ONE (19:37)
[2023-03-08] MEDS: Betamethasone Acetate/Betamethasone Sod Phosphate 6 MG/1 ML MDV IM SCH (19:53)
[2023-03-08] MEDS: Magnesium Sulfate/Water 20 GM/500 ML BAG IV SCH (19:59)
[2023-03-08] MEDS ORDERED: metroNIDAZOLE/Normal Saline 100 ML ONE (20:02)
[2023-03-08] MEDS: metroNIDAZOLE/Normal Saline 500 MG in Premix Bag 1 BAG IV SCH (20:09)
== END 2023-03-08 20:45 ==
LOC: MW.OBCHECK 16:12 → MW.OB 16:14 → MW.OBCHECK 18:51
PROVIDERS: ADMIT Obstetrics & Gynecology; ATTEND Obstetrics & Gynecology
DX: O47.9 False labor, unspecified (principal); Z3A.35 35 weeks gestation of pregnancy
CPT/HCPCS: 51702; 59025; 87480; 87510; 87660; 96372; 96374; 96375; G0378; J0702; J1836; J3105; J3475; J7120; 99222

== ENCOUNTER 2023-03-31 23:37 | Inpatient (IN) | payer MEDICAID ==
[2023-04-01] MEDS ORDERED: NIFEdipine 10 MG Cap PO ONE (00:31)
[2023-04-01] MEDS ORDERED: NIFEdipine 10 MG Cap PO SCH (00:45)
[2023-04-01] MEDS: Lactated Ringers 1,000 ML IV SCH ×2 (00:55→11:50)
[2023-04-01] MEDS: NIFEdipine 10 MG Cap ONE (00:55)
[2023-04-01] MEDS ORDERED: Citric Acid/Sodium Citrate Solution 30 ML Cup PO ONE (01:14)
[2023-04-01] MEDS ORDERED: Sodium Chloride 0.9% 10 ML Syringe FLUSH PRN (01:14)
[2023-04-01] MEDS ORDERED: Sodium Chloride 0.9% 2.5 ML Syringe FLUSH PRN (01:14)
[2023-04-01] MEDS ORDERED: Sodium Chloride 0.9% 20 ML SDV IV PRN (01:14)
[2023-04-01] MEDS ORDERED: ceFAZolin 2 GM in Sodium Chloride 0.9% 50 ML IV ONE (01:14)
[2023-04-01] MEDS ORDERED: Oxytocin/0.9 % Sodium Chloride 30 UNIT/500 ML BAG IV SCH (01:15)
[2023-04-01] MEDS ORDERED: Lactated Ringers 1,000 ML IV SCH (01:15)
[2023-04-01] MEDS ORDERED: ceFAZolin 1 GM Vial ONE (01:26)
[2023-04-01] MEDS ORDERED: Ketorolac 30 MG/ML SDV ONE (01:26)
[2023-04-01] MEDS ORDERED: Bupivacaine 0.25% 30 ML SDV ONE (01:26)
[2023-04-01] MEDS ORDERED: Oxytocin 10 Units/1 ML SDV ONE (01:26)
[2023-04-01] MEDS ORDERED: fentaNYL 100 MCG/2 ML SDV ONE (01:26)
[2023-04-01] MEDS ORDERED: Ropivacaine 0.5% 5 MG/ML 30 ML SDV ONE (01:26)
[2023-04-01] MEDS ORDERED: Morphine PF 10 MG/10 ML SDV ONE (01:26)
[2023-04-01] MEDS ORDERED: Ondansetron 4 MG/2 ML SDV ONE (01:26)
[2023-04-01] MEDS ORDERED: EPINEPHrine 1 MG/1 ML Amp ONE (01:26)
[2023-04-01 01:37] LABS: HEMATOCRIT 34.6 % (37.0-47.0); HEMOGLOBIN 11.3 g/dL (12.0-16.0); MEAN CORPUSCULAR HEMOGLOBIN 26.9 pg (28.0-32.0); MEAN CORPUSCULAR HGB CONC 32.7 g/dL (32.0-36.0); MEAN CORPUSCULAR VOLUME 82.4 fL (83.0-99.0); MEAN PLATELET VOLUME 11.3 fL (9.4-12.3); PLATELET COUNT,PLT 198 K/uL (150-400)
[2023-04-01] MEDS ORDERED: Phenylephrine 1% 10 MG/ML SDV ONE (02:27)
[2023-04-01] MEDS ORDERED: fentaNYL 50 MCG/ML SDV IVPUSH PRN (03:22)
[2023-04-01] MEDS ORDERED: HYDROmorphone 1 MG/ML Syringe IVPUSH PRN (03:22)
[2023-04-01] MEDS ORDERED: Ondansetron 4 MG/2 ML SDV IVPUSH PRN ×3 (03:22→03:29)
[2023-04-01] MEDS ORDERED: Naloxone 0.4 MG/ML SDV IVPUSH PRN (03:22)
[2023-04-01] MEDS ORDERED: Morphine 2 MG/ML SYRINGE IVPUSH PRN (03:22)
[2023-04-01] MEDS ORDERED: diphenhydrAMINE 50 MG/ML SDV IVPUSH PRN (03:22)
[2023-04-01] MEDS ORDERED: Acetaminophen/oxyCODONE 325-5 MG Tab PO PRN ×2 (03:22→03:29)
[2023-04-01] MEDS ORDERED: fentaNYL 100 MCG/2 ML SDV IVPUSH PRN (03:22)
[2023-04-01] MEDS ORDERED: Metoclopramide 10 MG/2 ML SDV IVPUSH PRN (03:22)
[2023-04-01] MEDS ORDERED: Albuterol 0.083% 2.5 MG/3 ML Neb Soln NEB PRN (03:22)
[2023-04-01] MEDS ORDERED: ePHEDrine 50 MG/ML SDV IVPUSH PRN (03:22)
[2023-04-01] MEDS ORDERED: Misoprostol 200 MCG Tab RECTAL PRN (03:29)
[2023-04-01] MEDS ORDERED: Bisacodyl 10 MG Supp RECTAL PRN (03:29)
[2023-04-01] MEDS ORDERED: Oxytocin 10 Units/1 ML SDV IM PRN (03:29)
[2023-04-01] MEDS ORDERED: Methylergonovine 0.2 MG/1 ML Amp IM PRN (03:29)
[2023-04-01] MEDS ORDERED: Lanolin 100% Cream 7 GM Tube TOP PRN (03:29)
[2023-04-01] MEDS ORDERED: droPERidol 5 MG/2 ML SDV ONE (04:10)
[2023-04-01] MEDS: droPERidol 5 MG/2 ML SDV IVPUSH PRN (04:16)
[2023-04-01] MEDS: Acetaminophen 1,000 MG in Premix Bag 1 BAG IV SCH (04:30)
[2023-04-01] MEDS: Ketorolac 30 MG/ML SDV IVPUSH SCH ×2 (09:23→16:15)
[2023-04-01] MEDS: Docusate Sodium 100 MG Cap PO SCH (09:23)
[2023-04-01] MEDS: diphenhydrAMINE 50 MG/ML SDV IVPUSH PRN (11:24)
[2023-04-02 06:15] LABS: HEMATOCRIT 30.6 % (37.0-47.0); HEMOGLOBIN 9.7 g/dL (12.0-16.0)
[2023-04-02] MEDS: Acetaminophen/oxyCODONE 325-5 MG Tab PO PRN (08:41)
[2023-04-02] MEDS: Ibuprofen 800 MG Tab PO PRN (15:43)
[2023-04-02] MEDS: Cyanocobalamin (Vitamin B12) 500 MCG Tab PO SCH (15:52)
[2023-04-02] MEDS: Folic Acid 1 MG Tab PO SCH (15:53)
[2023-04-02] MEDS: Vitamin B6-pyridOXINE 50 MG Tab PO SCH (15:54)
[2023-04-02] MEDS: Cholecalciferol (Vitamin D3) 25 MCG Tab PO SCH (16:01)
[2023-04-03 12:01] VITALS: BP 140/97; PULSE 77
== END 2023-04-03 11:45 | disposition home or self-care (01) | DRG 788 ==
LOC: MW.OBCHECK 23:37 → MW.OB 23:38 → OBSVTOIN 04-01 01:10 → MW.OB 04-01 01:10 → MW.OBCHECK 04-01 01:12 → MW.OB 04-01 13:58
PROVIDERS: ADMIT Obstetrics & Gynecology; ATTEND Obstetrics & Gynecology
PROC: 10D00Z1 Extraction of Products of Conception, Low, Open Approach (ICD-10-PCS; principal; 2023-04-01 02:28)
DX: O34.211 Maternal care for low transverse scar from previous cesarean delivery (principal); O99.03 Anemia complicating the puerperium; O69.81X0 Labor and delivery complicated by cord around neck, without compression, not applicable or unspecified; O99.344 Other mental disorders complicating childbirth; F32.A Depression, unspecified; Z37.0 Single live birth; Z3A.38 38 weeks gestation of pregnancy; Z98.890 Other specified postprocedural states
CPT/HCPCS: 36415; 59025; 85014; 85018; 85027; 86592; 86850; 86900; 86901; A9270-GY; J0131; J0171; J0665; J0690; J1100; J1200; J1790; J1885; J2274; J2371; J2405; J2590; J2795; J3010; J7120

== ENCOUNTER 2023-07-21 12:10 | Emergency (ER) | payer SELFPAY ==
[2023-07-21 12:33] VITALS: BP 139/102; PULSE 83
[2023-07-21] MEDS: Acetaminophen/oxyCODONE 325-5 MG Tab PO ONE (13:17)
== END 2023-07-21 13:44 | disposition home or self-care (01) ==
LOC: MW.ED 12:10
DX: S62.632A Displaced fracture of distal phalanx of right middle finger, initial encounter for closed fracture (principal); Z75.8 Other problems related to medical facilities and other health care; W23.0XXA Caught, crushed, jammed, or pinched between moving objects, initial encounter
CPT/HCPCS: 73140; 99283; A9270

== ENCOUNTER → 2023-07-28 | Day surgery (SDC) | payer MEDICAID ==
[~2023-07-28] MED LIST: Albuterol 0.083% 2.5 MG/3 ML Neb Soln NEB PRN; Bupivacaine 0.5% 30 ML SDV ONE; Desflurane 240 ML Bottle ONE; HYDROmorphone 1 MG/ML Syringe IVPUSH PRN; Metoclopramide 10 MG/2 ML SDV IVPUSH PRN; Midazolam 1 MG/ML 2 ML SDV ONE; Morphine 2 MG/ML SYRINGE IVPUSH PRN; Naloxone 0.4 MG/ML SDV IVPUSH PRN; Ondansetron 4 MG/2 ML SDV IVPUSH PRN; Ondansetron 4 MG/2 ML SDV ONE; Propofol 200 MG/20 ML SDV ONE; ceFAZolin 2 GM Vial ONE; droPERidol 5 MG/2 ML SDV IVPUSH PRN; fentaNYL 100 MCG/2 ML SDV ONE; fentaNYL 50 MCG/ML SDV IVPUSH PRN
[2023-07-28] MEDS: Lactated Ringers 1,000 ML IV SCH (10:00)
[2023-07-28 13:34] VITALS: BP 116/62; PULSE 70
== END | disposition home or self-care (01) ==
LOC: MW.SDS 09:29
PROVIDERS: ATTEND Orthopaedic Surgery
DX: S62.622A Displaced fracture of middle phalanx of right middle finger, initial encounter for closed fracture (principal); E66.9 Obesity, unspecified; Z79.899 Other long term (current) drug therapy; Z68.30 Body mass index [BMI] 30.0-30.9, adult
CPT/HCPCS: 26727; 64450; 76000; 81025; J0665; J0690; J2250; J2405; J2704; J3010; J7120

== ENCOUNTER 2023-11-30 20:07 | Emergency (ER) | payer SELFPAY ==
[2023-11-30 21:01] LABS: BASOPHILS ABSOLUTE AUTO 0.05 K/uL (0.00-0.20); BASOPHILS PERCENT AUTO 0.4 % (0.0-1.0); EOSINOPHILS ABSOLUTE AUTO 0.18 K/uL (0.00-0.45); EOSINOPHILS PERCENT AUTO 1.3 % (0.0-6.0); HEMATOCRIT 38.7 % (37.0-47.0); HEMOGLOBIN 12.9 g/dL (12.0-16.0); IMMATURE GRAN ABSOLUTE AUTO 0.07 K/uL (0.00-0.05); IMMATURE GRAN PERCENT AUTO 0.5 % (0.0-0.4); LYMPHOCYTES ABSOLUTE AUTO 2.69 K/uL (1.00-4.80); LYMPHOCYTES PERCENT AUTO 19.7 % (24.0-44.0); MEAN CORPUSCULAR HEMOGLOBIN 28.7 pg (28.0-32.0); MEAN CORPUSCULAR HGB CONC 33.3 g/dL (32.0-36.0); MEAN CORPUSCULAR VOLUME 86.2 fL (83.0-99.0); MEAN PLATELET VOLUME 10.7 fL (9.4-12.3); MONOCYTES ABSOLUTE AUTO 0.79 K/uL (0.00-0.80); MONOCYTES PERCENT AUTO 5.8 % (0.0-8.0); NEUTROPHILS PERCENT AUTO 72.3 % (41.0-71.0); PLATELET COUNT,PLT 230 K/uL (150-400); RED BLOOD CELL COUNT 4.49 M/uL (4.10-5.30); WHITE BLOOD CELL COUNT,WBC 13.68 K/uL (3.9-11.3)
[2023-11-30 21:32] LABS: A/G RATIO 0.8 (0.9-1.6); BILIRUBIN TOTAL 0.2 mg/dL (0.2-1.0); CALCIUM 8.7 mg/dL (8.5-10.1); CARBON DIOXIDE,CO2 27.2 mmol/L (21.0-32.0); CREATININE 0.9 mg/dL (0.6-1.0); EST CRCL DRUG DOSING (CG) 66.84 mL/min; POTASSIUM,K 3.6 mmol/L (3.5-5.1); PROTEIN TOTAL,TP 6.9 g/dL (6.4-8.2)
[2023-11-30 22:07] LABS: BILIRUBIN,URINE NEGATIVE (NEGATIVE); COLOR,URINE YELLOW; GLUCOSE,URINE NEGATIVE (NEGATIVE); KETONES,URINE TRACE mg/dL (NEGATIVE); LEUKOCYTE ESTERASE,URINE SMALL (NEGATIVE); NITRITE,URINE NEGATIVE (NEGATIVE); OCCULT BLOOD,URINE NEGATIVE (NEGATIVE); PROTEIN,URINE NEGATIVE (NEGATIVE); UROBILINOGEN,URINE 0.2 EU/dL (<2.0)
[2023-11-30 22:22] LABS: APPEARANCE,URINE SLT CLOUDY
[2023-11-30 22:23] LABS: AMORPHOUS SEDIMENT,URINE MODERATE (NEGATIVE); BACTERIA,URINE FEW (NEGATIVE); EPITHELIAL CELLS,URINE FEW (NONE-FEW); MUCUS,URINE OCCASIONAL (NONE-MOD); RBC,URINE 0-3 (0-2/HPF)
[2023-12-01 00:41] VITALS: BP 130/86; PULSE 87
== END 2023-12-01 00:30 | disposition home or self-care (01) ==
LOC: MW.ED 20:07
DX: O20.0 Threatened abortion (principal); Z3A.12 12 weeks gestation of pregnancy
CPT/HCPCS: 36415; 76801; 76801-26; 80053; 81001; 84702; 84703; 85025; 86900; 86901; 87086; 99284